=== PATIENT | male | born 1990 | race Two or more races ===

== ENCOUNTER 2020-05-11 09:38 | Outpatient (REF) | payer OTHER, SELFPAY ==
[2020-05-11 10:35] LABS: MANUAL DIFF FLAG NO
[2020-05-11 10:38] LABS: Basophils Percent Auto 0.4 % (0-2); Eosinophils Absolute Auto 0.1 X10*3/uL (0.0-0.4); Eosinophils Percent Auto 0.7 % (0-4); Hemoglobin 15.9 g/dl (14.0-18.0); Imm Gran Abs Auto 0.02 X10*3/uL (0.00-0.03); Imm Gran Pct Auto 0.3 % (0.0-0.4); Lymphocytes Absolute Auto 2.2 X10*3/uL (1.2-4.9); Lymphocytes Percent Auto 30.3 % (20-40); Mean Corpuscular HGB Conc 33.1 g/dl (31.0-36.0); Mean Corpuscular Hemoglobin 28.9 pg (27.0-33.0); Mean Corpuscular Volume 87.3 fL (80-98); Mean Platelet Volume 11.5 fL (9.4-12.4); Monocytes Absolute Auto 0.4 X10*3/uL (0.1-1.2); Monocytes Percent Auto 4.7 % (2-11); Neutrophils Absolute Auto 4.7 X10*3/uL (2.0-8.3); Neutrophils Percent Auto 63.6 % (45-73); Platelet Count 256 X10*3/uL (160-400); Red Cell Distribution Width 12.5 % (11.0-16.0); White Blood Count 7.4 X10*3/uL (4.8-10.8)
[2020-05-11 11:11] LABS: Anion Gap 11 (12-20); Blood Urea Nitrogen 17 mg/dL (9-16); Calcium 9.9 mg/dL (8.4-10.2); Carbon Dioxide 31 mmol/L (22-29); Chloride 101 mmol/L (96-108); Cholesterol 267 mg/dL; Estimated Glomerular Filt Rate > 60; Glucose Fasting 98 mg/dL (60-99); HDL Cholesterol 46 mg/dL; LDL Cholesterol Calculated 195 mg/dl; Potassium 4.7 mmol/l (3.3-5.1); Sodium 138 mmol/L (135-145); Triglycerides 130 mg/dL
[2020-05-11 11:17] LABS: Estimated Average Glucose 108 mg/dL; Hemoglobin A1c % 5.4 %
[2020-05-11 11:45] LABS: Reflex LDLD? No
== END 2020-05-11 09:39 | disposition home or self-care (01) ==
LOC: HO.LAB 09:38
PROVIDERS: PCP Internal Medicine; Visit Provider Nurse Practitioner Family
DX: M54.5 Low back pain (principal)
CPT/HCPCS: 36415; 80048; 80061; 83036; 85025

== ENCOUNTER 2020-09-07 15:37 | Outpatient (REF) | payer OTHER, SELFPAY ==
--- NOTE | ~2020-09-07 | XR_ITS ---
EXAMINATION: XR LUMBOSACRAL SPINE CLINICAL INFORMATION: Back pain. COMPARISON: None TECHNIQUE: Three views of the lumbosacral spine. FINDINGS: The vertebral bodies and posterior elements are normal. The disc spaces are preserved and the vertebral alignment is normal. The paraspinal soft tissues are normal. XR/XR lumbar spine 2-3V IMPRESSION: Unremarkable examination.
== END 2020-09-07 15:38 | disposition home or self-care (01) ==
LOC: HO.XRAY 15:37
PROVIDERS: Visit Provider Internal Medicine
DX: M54.9 Dorsalgia, unspecified (principal)
CPT/HCPCS: 72100

== ENCOUNTER 2020-09-08 06:58 | Outpatient (REF) | payer OTHER, SELFPAY ==
[2020-09-08 08:52] LABS: Alanine Aminotransferase 57 U/L (0-40); Albumin Level 4.3 g/dL (3.5-5.0); Alkaline Phosphatase 108 U/L (39-117); Anion Gap 15 (12-20); Aspartate Amino Transferase 30 U/L (5-37); Bilirubin Total 0.8 mg/dL (0.0-1.0); Blood Urea Nitrogen 14 mg/dL (9-16); Calcium 9.2 mg/dL (8.4-10.2); Carbon Dioxide 22 mmol/L (22-29); Chloride 107 mmol/L (96-108); Cholesterol 248 mg/dL; Estimated Glomerular Filt Rate > 60; Glucose Fasting 87 mg/dL (60-99); HDL Cholesterol 40 mg/dL; LDL Cholesterol Calculated 172 mg/dl; Potassium 4.7 mmol/L (3.3-5.1); Sodium 139 mmol/L (135-145); Total Protein 7.3 g/dL (6.5-8.0); Triglycerides 182 mg/dL
== END 2020-09-08 06:59 | disposition home or self-care (01) ==
LOC: HO.LAB 06:58
PROVIDERS: PCP Internal Medicine; Visit Provider Internal Medicine
DX: E78.00 Pure hypercholesterolemia, unspecified (principal); E78.5 Hyperlipidemia, unspecified
CPT/HCPCS: 36415; 80053; 80061

== ENCOUNTER 2020-10-16 06:11 | Outpatient (REF) | payer OTHER, SELFPAY ==
[2020-10-16 07:41] LABS: Alanine Aminotransferase 60 U/L (0-40); Albumin Level 4.3 g/dL (3.5-5.0); Alkaline Phosphatase 127 U/L (39-117); Anion Gap 12 (12-20); Aspartate Amino Transferase 26 U/L (5-37); Bilirubin Total 0.4 mg/dL (0.0-1.0); Blood Urea Nitrogen 18 mg/dL (9-16); Calcium 9.3 mg/dL (8.4-10.2); Carbon Dioxide 25 mmol/L (22-29); Chloride 105 mmol/L (96-108); Cholesterol 265 mg/dL; Estimated Glomerular Filt Rate > 60; Glucose Fasting 95 mg/dL (60-99); HDL Cholesterol 39 mg/dL; LDL Cholesterol Calculated 186 mg/dl; Potassium 4.2 mmol/L (3.3-5.1); Sodium 138 mmol/L (135-145); Triglycerides 203 mg/dL
== END 2020-10-16 06:12 | disposition home or self-care (01) ==
LOC: HO.LAB 06:11
PROVIDERS: PCP Internal Medicine; Visit Provider Internal Medicine
DX: E78.00 Pure hypercholesterolemia, unspecified (principal); E78.5 Hyperlipidemia, unspecified
CPT/HCPCS: 36415; 80053; 80061

== ENCOUNTER 2020-11-11 16:00 | Outpatient (RCR) | payer OTHER, SELFPAY ==
--- NOTE | 2020-10-13 16:38 | MHC.PT.EP ---
[facility] [place] [facility] [place] Office [place] Office [address] Daya Yang [address] [phone] F: [phone] F: [phone] F: [phone] F: [phone] Physical Therapy Plan of Care Date of Evaluation: Date of Surgery: N/A Diagnosis: M54.41: lumbago with sciatica, right side G89.29: other chronic pain Assessment: pt presents w/ impaired SI alignment which may be contributing to his radicular symptoms. Other working diagnosis includes lumbar radiculopathy. Will monitor and treat accordingly. pt presents to physical therapy with pain, decreased range of motion, decreased strength, impaired functional mobility, impaired postural awareness, and gait deviations. pt is a good candidate for skilled PT due to age, potential remediation of impairments, typical disease/condition progression and prognosis, comorbidities, and motivation. pt would benefit from tailored strengthening and stretching exercise program, functional training, gait training, postural re-training, neuromuscular re-education, modalities as needed for pain, equipment safety demonstration. Frequency and Duration: The patient will be seen 2x/wk for 4 wks Short Term Goals: pt will be I w/ HEP to promote self-management of condition. pt will improve lumbar flexion by 15% to facilitate ease in lower body dressing and donning shoes and socks. 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 pt will report <1/10 low back pain to lift 40# object x5 reps from floor to chest height w/ proper lifting mechanics to promote neutral spine to facilitate pain-free return to work. Treatment Plan: Modalities to reduce pain, spasms and effusion. Manual therapy to restore motion and function. Therapeutic exercise to improve strength and flexibility. Neuromuscular re-education for posture and balance. Therapeutic activities to return to functional activities of daily living. Electronically signed by: Fior Fuentes PT, DPT Please sign and return to therapist. Thank you for your referral.
--- NOTE | 2020-11-16 10:33 | MHC.PT.DC ---
[facility] [place] Office [place] Office [place] Office [address] Daya Yang [address] [phone] F: [phone] F: [phone] F: [phone] F: [phone] Physical Therapy Discharge Report Diagnosis: M54.41: lumbago with sciatica, right side G89.29: other chronic pain Date of Surgery: N/A Date of Evaluation: 10/13/20 Date of Discharge: 11/16/20 Treatments to Date: 4 Cancellations to Date: 0 No Shows to Date: 1 Discharge Status: Improved Function Independent with HEP Discharge Summary: The patient has not been having any back pain over the past couple of weeks. He is independent with his home exercise program at this time. He feels he is ready to manage his symptoms on his own with his home exercise program. He is discharged from this physical therapy plan of care. Electronically signed by: Fior Fuentes PT, DPT Please sign and return to therapist. Thank you for your referral.
== END 2020-11-16 10:33 | disposition home or self-care (01) ==
LOC: HO.PT 16:00
PROVIDERS: PCP Internal Medicine; Visit Provider Internal Medicine
DX: M54.41 Lumbago with sciatica, right side (principal); G89.29 Other chronic pain
CPT/HCPCS: 97110; 97140; 97162; 97530

== ENCOUNTER 2021-02-09 16:36 | Emergency (ER) | payer OTHER, SELFPAY | END 2021-02-09 19:48 | disposition left against medical advice (07) | PROVIDERS: Emergency Provider Emergency Medicine; PCP Internal Medicine | DX: L23.7 Allergic contact dermatitis due to plants, except food (principal) ==

== ENCOUNTER 2021-08-31 09:19 | Emergency (ER) | payer OTHER, SELFPAY ==
[2021-08-31 09:37] VITALS: BP 130/76; PULSE 85; RESP 18; TEMP 36.9; O2SAT 97; BMI 28.4
[2021-08-31 10:00] LABS: COVID-19 Test Negative (Negative)
[2021-08-31 10:05] LABS: IDNOW Serial# 08D9AD1C; Influenza A Negative (Negative); Influenza B2 Negative (Negative)
--- NOTE | 2021-08-31 10:26 | ED.URI ---
HPI - URI/Sore Throat General Chief Complaint: Upper Respiratory Symptoms Stated Complaint: sorethroat,headache Time Seen by Provider: 08/31/21 10:02 Source: patient Mode of arrival: ambulatory Limitations: language barrier History of Present Illness HPI Narrative: 30-year-old Polish-speaking male presents with 2 days of cough, sore throat, headache, and a sensation of burning in his sinuses. No fever, no nausea vomiting or diarrhea, he can swallow fine, he can open his mouth all the way. Headache started this morning as a mild headache with no photophobia, no visual changes, no neck pain. States he is bringing up phlegm with his cough. No prior history of pneumonia or asthma. He is vaccinated for COVID, his had bronchitis last week. States his voice is hoarse and his throat hurts more when he coughs. Related Data Previous Rx's Medication Instructions Recorded atorvastatin 10 mg tablet 10 mg PO BEDTIME 90 Days #90 tab 05/12/20 albuterol sulfate 90 mcg/actuation 2 puff INHALATION Q4-6H PRN #6.7 g 08/31/21 aerosol inhaler benzonatate 200 mg capsule 200 mg PO TID 5 Days #15 cap 08/31/21 ibuprofen 600 mg tablet 600 mg PO TID 7 Days #21 tab 08/31/21 Allergies Allergy/AdvReac Type Severity Reaction Status Date / Time No Known Allergies Allergy Verified 09/15/20 16:29 [No Known Allergies*] Review of Systems Constitutional: Constitutional: Reports body ache(s), Denies chills, Reports fatigue, Denies fever(s), Reports headache(s), Denies malaise and Denies weakness Eyes: Eyes: Denies blurry vision, Denies change in vision and Denies diplopia ENT: Denies vertigo, Denies dizziness, Denies otalgia, Reports headache(s), Denies mouth pain, Denies post nasal drip, Denies sinus pain, Denies sinus pressure, Reports sore throat and Denies throat swelling Cardiovascular: Cardiovascular: Denies chest pain, Denies syncope, Denies leg edema, Denies lightheadedness, Denies Loss of Consciousness, Denies palpitations and Denies dyspnea Respiratory: Respiratory: Denies chest congestion, Reports cough and Denies dyspnea Gastrointestinal: Gastrointestinal: Denies abdominal pain, Denies hematochezia, Denies constipation, Denies diarrhea and Denies vomiting Musculoskeletal: Musculoskeletal: Reports no additional musculoskeletal complaints and Reports myalgias Neurologic: Denies confusion, Denies vertigo, Denies dizziness, Denies syncope, Reports headache(s) and Denies weakness Psychiatric: Psychiatric: Denies anxiety, Denies confusion and Denies depression Endocrine: Endocrine: Reports fatigue and Denies palpitations Allergic/Immunologic: Allergic/Immunologic: Denies throat swelling PMFSH Past Medical History Medical History (Updated 08/31/21 @ 10:26 by CARLOS Norton) Back pain Pure hypercholesterolemia Surgical History No pertinent past surgical history Family History Family History Father Diabetes Mother No problems noted. Maternal Grandmother Diabetes Paternal Grandmother Diabetes Hypertension Brother No problems noted. Sister No problems noted. Son No problems noted. Daughter No problems noted. Social History Social History (Updated 09/15/20 @ 16:34 by YANET Wick) Alcohol intake: never Advance Directives: No Advance Directives Information Provided: No Physical Exam Vital Signs: Vital Signs: Last Vital Signs Temp 98.5 F 08/31/21 09:37 Pulse 85 08/31/21 09:37 Resp 18 08/31/21 09:37 BP 130/76 08/31/21 09:37 Pulse Ox 97 08/31/21 09:37 BMI result Body Mass Index 28.4 Const: General: no acute distress, alert and awake; No confusion Nutritional Appearance: well nourished Orientation/consciousness: patient oriented x3 and No confusion Limitations: no limitations HEENT: Head: Yes normal to inspection, Yes normocephalic and Yes atraumatic Ears: hearing grossly normal bilaterally, external ears normal, EAC's normal and unable to visualize TM (cerumen impaction) bilaterally General nose exam: Normal external nose present Face and sinus: Yes normal facial exam and Yes sinuses nontender Mouth: Normal oral and palatal mucosa present and moist mucous membranes Throat: Yes postnasal drainage Eyes: Conjunctivae: conjunctivae normal Pupils: Equal, round and reactive pupils present EOM: EOMs intact bilaterally Neck: Neck: Yes full ROM, Yes no lymphadenopathy and Yes supple Resp: Effort & Inspection: normal respiratory effort and able to speak in complete sentences Auscultation: clear to auscultation bilaterally, no crackles, no rales, no rhonchi and no wheezes Cardio: Rate: regular rate Rhythm: regular rhythm Heart sounds: S1 normal heart sound present and S2 normal heart sound present GI: Inspection: Yes normal to inspection Palpation (GI): Soft to palpation, nontender, no guarding and not rigid Percussion: Yes normal to percussion Auscultation: normal bowel sounds Skin: General skin exam: no rashes or lesions noted Neuro: General: patient oriented x3 and No confusion Cranial nerves: Yes Equal, round and reactive pupils present Extrem: General: Yes normal to inspection and Yes full ROM Psych: Appearance: grossly normal Affect: normal affect Attitude: cooperative Thought process: Normal thought process present Course Course Course Narrative: 30-year-old male presents with 2 days of upper respiratory symptoms of cough, sore throat, headache. Both COVID and flu are negative. Tessalon Perles and albuterol inhaler for symptomatic cough control, salt water gargles for sore throat, counseled Tylenol for headache. Gave return precautions. Patient verbalized agreement understanding of the plan. MDM - URI/Sore Throat Lab Data Labs: Lab Results 08/31/21 08/31/21 Range/Units 09:33 09:33 COVID-19 (NADER) Negative (Negative) COVID-19 Clin Com See Note Influenza Type A (NEETA) Negative (Negative) Influenza Type B (NEETA) Negative (Negative) Influenza A & B Note See Note Discharge Plan Discharge Clinical Impression: Upper respiratory infection Patient Disposition: Home, Self-Care Instructions: Upper Respiratory Infection (ED) Additional Instructions: Both your COVID in your influenza tests were negative today. Please stay out of work until . Please rest, drink plenty of fluids, and take ibuprofen, every 6 hours In addition, I have prescribed benzonatate, which is for your cough. Also on albuterol inhaler for cough. Please put 1 tsp of salt in a couple of warm water and gargle, do this several times a day for your sore throat. If you feel short of breath, you have chest pain, you have fevers or worsening cough, please return to the emergency room Tanto polanco COVID en bonny pruebas de influenza dieron negativo hoy. Por favor, qu?dese fuera del trabajo hasta el jueves. Por favor, descanse, ana muchos l?quidos y tome ibuprofeno, cada 6 horas. Adem?s, le he recetado benzonatato, que es para la tos. Tambi?n en inhalador de albuterol para la tos. Por favor, ponga 1 cucharadita de josé antonio en un par de agua tibia y mike g?rgaras, mike esto varias veces al d?a para polanco dolor de garganta. Si siente que le falta el aire, tiene dolor en el pecho, fiebre o empeoramiento de la tos, regrese a la jossy de emergencias. Prescriptions: New benzonatate 200 mg capsule 200 mg PO TID 5 Days Qty: 15 0RF albuterol sulfate 90 mcg/actuation HFA aerosol inhaler 2 puff inhalation Q4-6H PRN (Reason: shortness of breath or wheezing) Qty: 6.7 0RF ibuprofen 600 mg tablet 600 mg PO TID 7 Days Qty: 21 0RF No Action atorvastatin 10 mg tablet 10 mg PO BEDTIME 90 Days Qty: 90 0RF Stand Alone Forms: Work/School Release Interventions: ED Discharge Assessment Last Done: 08/31/21 10:33 Discharge Date/Time: 08/31/21 10:33
== END 2021-08-31 10:33 | disposition home or self-care (01) ==
PROVIDERS: Emergency Provider Emergency Medicine; PCP Internal Medicine
DX: J06.9 Acute upper respiratory infection, unspecified (principal); Z20.822 Contact with and (suspected) exposure to COVID-19; J02.9 Acute pharyngitis, unspecified
CPT/HCPCS: 87502; 87635; 99283

== ENCOUNTER 2021-11-10 06:19 | Emergency (ER) | payer OTHER, SELFPAY ==
[2021-11-10 06:28] VITALS: BP 121/63; PULSE 86; RESP 16; TEMP 36.8; O2SAT 98; BMI 25.4
--- NOTE | 2021-11-10 07:27 | ED_ITS ---
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 Mode of arrival: ambulatory Limitations: no limitations History of Present Illness Complaint: ear pain Location: left ear Duration: constant Severity: moderate Relieving factors: nothing Exacerbating factors: nothing Context: recent swimming Discharge from ear: no Associated symptoms ear: decreased hearing Treatment prior to arrival: none Related Data Previous Rx's Medication Instructions Recorded atorvastatin 10 mg tablet 10 mg PO BEDTIME 90 days #90 tabs 05/12/20 albuterol sulfate 90 mcg/actuation 2 puff inhalation Q4-6H PRN 08/31/21 aerosol inhaler shortness of breath or wheezing #6.7 grams benzonatate 200 mg capsule 200 mg PO TID 5 days #15 caps 08/31/21 ibuprofen 600 mg tablet 600 mg PO TID 7 days #21 tabs 08/31/21 ofloxacin 0.3 % ear drops 10 drp otic (ears) DAILY 7 days #5 11/10/21 mL Allergies Allergy/AdvReac Type Severity Reaction Status Date / Time No Known Allergies Allergy Verified 11/10/21 06:28 [No Known Allergies*] Review of Systems Review of Systems: Constitutional : no Fever, no Chills ENT/Mouth : no sore throat, no runny nose, pos ear pain Eyes: No Discharge Cardiovascular : No Chest Pain, No SOB Respiratory : No Cough, No Sputum Gastrointestinal : No Nausea, No Vomiting, No Diarrhea Genitourinary : No Dysuria, No Urinary Frequency Musculoskeletal : no Myalgia Skin : No rash Neuro : No Headache PMFSH Past Medical History Attestation statement: The following information was validated with the patient. Medical History Pure hypercholesterolemia Surgical History No pertinent past surgical history Family History Family History Father Diabetes Mother No problems noted. Maternal Grandmother Diabetes Paternal Grandmother Diabetes Hypertension Brother No problems noted. Sister No problems noted. Son No problems noted. Daughter No problems noted. Social History Social History (Updated 11/10/21 @ 07:29 by Oralia Cruz DO) Alcohol intake: never Patient Tobacco Use Status: Never used Tobacco Advance Directives: No Advance Directives Information Provided: No Physical Exam Vital Signs: Vital Signs: Last Vital Signs Temp 98.2 F 11/10/21 06:28 Pulse 86 11/10/21 06:28 Resp 16 11/10/21 06:28 BP 121/63 11/10/21 06:28 Pulse Ox 98 11/10/21 06:28 O2 Del Method 11/10/21 06:28 BMI result Body Mass Index 25.4 Appearance: Alert. Oriented X3. No acute distress. Eyes: Pupils equal, round and reactive to light. ENT: Pharynx normal. bilateral ears dark cerumen impaction Neck: Normal inspection. Neck supple. CVS: Normal heart rate and rhythm. Pulses normal. Respiratory: No respiratory distress. Breath sounds normal. Abdomen: Soft and nontender. Skin: Skin warm and dry. Normal skin color. Extremities: No lower extremity edema. Neuro: Oriented X 3. No motor deficit. No sensory deficit. Procedures Procedure Narrative Procedure Narrative: with elephant ear wash system - irrigated with warm water tolerated well removed dark small amount of cerumen, post check no perforation, red canal MDM - Ear MDM Narrative Medical decision making narrative: 31 yo male with hx of HLD here with bilateral cerumen impaction of both ears - at this time will irrigate the ears and then recheck. Discharge Plan Discharge Clinical Impression: Cerumen impaction Qualifiers: Laterality: left Qualified Code(s): H61.22 - Impacted cerumen, left ear Otitis externa Qualifiers: Otitis externa type: diffuse Chronicity: acute Laterality: left Qualified Code(s): H60.312 - Diffuse otitis externa, left ear Patient Disposition: Home, Self-Care Instructions: Otitis Externa (ED), Ear Infection (ED) Additional Instructions: return to ED for any worsening symptoms or concerns Prescriptions: New ofloxacin 0.3 % drops 10 drp otic (ears) DAILY 7 Days Qty: 5 0RF No Action benzonatate 200 mg capsule 200 mg PO TID 5 Days Qty: 15 0RF albuterol sulfate 90 mcg/actuation HFA aerosol inhaler 2 puff inhalation Q4-6H PRN (Reason: shortness of breath or wheezing) Qty: 6.7 0RF ibuprofen 600 mg tablet 600 mg PO TID 7 Days Qty: 21 0RF atorvastatin 10 mg tablet 10 mg PO BEDTIME 90 Days Qty: 90 0RF Stand Alone Forms: Work/School Release Print Language: Nigerien
--- NOTE | 2021-11-10 07:54 | PC.NURSE ---
Attempting to irrigate left ear however minimal wax seen. Provider to attempt with elephant ear washer
--- NOTE | 2021-11-10 08:01 | PC.NURSE ---
Dr Cruz to room for lef ear irrigation, minimal wax removed. Plan for d/c with ear drops
== END 2021-11-10 09:26 | disposition home or self-care (01) ==
PROVIDERS: Emergency Provider Emergency Medicine; PCP Internal Medicine
DX: H60.312 Diffuse otitis externa, left ear (principal); H61.22 Impacted cerumen, left ear; H92.02 Otalgia, left ear; R51.9 Headache, unspecified; Z79.899 Other long term (current) drug therapy
CPT/HCPCS: 69209; 99282; 99283

== ENCOUNTER 2021-12-07 08:40 | Outpatient (REF) | payer OTHER, SELFPAY ==
[2021-12-07 09:54] LABS: Hematocrit 44.9 % (42.0-52.0); Hemoglobin 14.4 g/dl (14.0-18.0); Mean Corpuscular HGB Conc 32.1 g/dl (31.0-36.0); Mean Corpuscular Hemoglobin 27.9 pg (27.0-33.0); Mean Platelet Volume 12.6 fL (9.4-12.4); Platelet Count 182 X10*3/uL (160-400); Red Blood Count 5.16 X10*6/uL (4.60-5.80); Red Cell Distribution Width 12.8 % (11.0-16.0); White Blood Count 5.2 X10*3/uL (4.8-10.8)
[2021-12-07 10:20] LABS: Alanine Aminotransferase 28 U/L (0-40); Albumin Level 4.4 g/dL (3.5-5.0); Alkaline Phosphatase 103 U/L (39-117); Anion Gap 11 (12-20); Aspartate Amino Transferase 17 U/L (5-37); Bilirubin Total 0.6 mg/dL (0.0-1.0); Blood Urea Nitrogen 12 mg/dL (9-16); Calcium 9.3 mg/dL (8.4-10.2); Carbon Dioxide 25 mmol/L (22-29); Chloride 106 mmol/L (96-108); Cholesterol 200 mg/dL; Estimated Glomerular Filt Rate > 60; Glucose Fasting 88 mg/dL (60-99); HDL Cholesterol 39 mg/dL; LDL Cholesterol Calculated 138 mg/dl; Potassium 4.4 mmol/L (3.3-5.1); Sodium 138 mmol/L (135-145); Total Protein 7.1 g/dL (6.5-8.0); Triglycerides 116 mg/dL
[2021-12-07 10:42] LABS: Vitamin D 25-OH Total 23.4 ng/mL (>30)
[2021-12-07 11:19] LABS: Vitamin B12 560 pg/mL (200-900)
== END 2021-12-07 08:41 | disposition home or self-care (01) ==
LOC: HO.LAB 08:40
PROVIDERS: PCP Internal Medicine; Visit Provider Nurse Practitioner Family
DX: Z00.00 Encounter for general adult medical examination without abnormal findings (principal); Z13.29 Encounter for screening for other suspected endocrine disorder; E78.00 Pure hypercholesterolemia, unspecified
CPT/HCPCS: 36415; 80053; 80061; 82306; 82607; 82746; 84443; 85027

== ENCOUNTER 2022-07-26 08:51 | Emergency (ER) | payer OTHER, SELFPAY ==
[2022-07-26 09:40] VITALS: BP 141/82; PULSE 92; RESP 18; TEMP 36.3; O2SAT 98; BMI 28.4
[2022-07-26 09:54] LABS: MANUAL DIFF FLAG NO
[2022-07-26 10:03] LABS: Basophils Percent Auto 0.2 % (0-2); Eosinophils Absolute Auto 0.1 X10*3/uL (0.0-0.4); Eosinophils Percent Auto 0.8 % (0-4); Hematocrit 48.6 % (42.0-52.0); Hemoglobin 15.9 g/dl (14.0-18.0); Imm Gran Abs Auto 0.03 X10*3/uL (0.00-0.03); Imm Gran Pct Auto 0.4 % (0.0-0.4); Lymphocytes Absolute Auto 1.4 X10*3/uL (1.2-4.9); Lymphocytes Percent Auto 16.3 % (20-40); Mean Corpuscular HGB Conc 32.7 g/dl (31.0-36.0); Mean Corpuscular Hemoglobin 28.4 pg (27.0-33.0); Mean Corpuscular Volume 86.9 fL (80.0-98.0); Mean Platelet Volume 10.7 fL (9.4-12.4); Monocytes Absolute Auto 0.6 X10*3/uL (0.1-1.2); Monocytes Percent Auto 7.5 % (2-11); Neutrophils Absolute Auto 6.2 x10*3/uL (2.0-8.3); Neutrophils Percent Auto 74.8 % (45-73); Platelet Count 223 X10*3/uL (160-400); Red Blood Count 5.59 X10*6/uL (4.60-5.80); Red Cell Distribution Width 13.1 % (11.0-16.0); White Blood Count 8.4 X10*3/uL (4.8-10.8)
[2022-07-26 10:13] LABS: Alanine Aminotransferase 57 U/L (0-40); Albumin Level 4.4 g/dL (3.5-5.0); Alkaline Phosphatase 105 U/L (39-117); Anion Gap 13 (12-20); Aspartate Amino Transferase 26 U/L (5-37); Bilirubin Total 1.1 mg/dL (0.0-1.0); Blood Urea Nitrogen 17 mg/dL (9-16); Calcium 8.9 mg/dL (8.4-10.2); Carbon Dioxide 29 mmol/L (22-29); Chloride 102 mmol/L (96-108); Creatinine Clr Calc Pharmacy 106.8; Estimated Glomerular Filt Rate > 60; Glucose Random 105 mg/dL (60-115); Potassium 4.2 mmol/L (3.3-5.1); Sodium 140 mmol/L (135-145); Total Protein 7.2 g/dL (6.5-8.0)
[2022-07-26 10:37] LABS: Influenza A PCR NEGATIVE (Negative); Influenza B PCR NEGATIVE (Negative); Resp Syncy Virus RNA Qual PCR NEGATIVE (Negative); SARS COV2 PCR INHOUSE NEGATIVE (Negative)
--- NOTE | 2022-07-26 13:30 | ED.NAVMDI ---
HPI - Nausea/Vomiting/Diarrhea General Chief complaint: Abdominal Pain Stated complaint: N/V/D Time Seen by Provider: 07/26/22 13:11 Source: patient and family Mode of arrival: ambulatory Limitations: no limitations History of Present Illness HPI Narrative: can tolerate PO today his boss made him come to ED MD elicited complaint: nausea, vomiting, diarrhea and abdominal pain Onset (ago): day(s) (yesterday) Description of vomiting: food contents and watery Description of diarrhea: watery Associated nausea: Yes Associated abdominal pain: Yes Location of pain: diffuse Radiation: diffuse Pain consistency: intermittent Severity: mild Quality: cramping Exacerbating factors: eating Relieving factors: none Context: sick contacts (son has it too) Related Data Previous Rx's Medication Instructions Recorded cholecalciferol (vitamin D3) 50 50 mcg PO DAILY 90 days #90 caps 05/19/22 mcg (2,000 unit) capsule guaifenesin 600 mg tablet, 600 mg PO Q12H PRN congestion 10 05/19/22 extended release 12 hr (Mucinex) days #20 tabs ondansetron 4 mg disintegrating 4 mg PO Q8H PRN nausea and 07/26/22 tablet vomiting #20 tabs Allergies Allergy/AdvReac Type Severity Reaction Status Date / Time No Known Allergies Allergy Verified 05/19/22 15:47 [No Known Allergies*] Review of Systems Review of Systems: Constitutional : No Weight loss, No Fever, No Chills ENT/Mouth : No sore throat, No Rhinorrhea Eyes: No Swelling, No Redness Cardiovascular : No Chest Pain, No SOB, NoEdema Respiratory : No Cough, No Sputum, No Wheezing Gastrointestinal : Positive Nausea, Positive Vomiting, positive Diarrhea, positive abdominal Pain, No Hematochezia, No Melena Genitourinary : No Dysuria, No Urinary Frequency, No Hematuria, No Urgency Musculoskeletal : No joint pain, No Myalgias, No Joint Swelling Skin : No Skin Lesions, No rash Neuro : No Weakness, No Numbness, No Dizziness, No Headache Psych : No Anxiety/Panic, No Depression Heme/Lymph: No Bruising, No Lymphadenopathy Endocrine : No Polyuria, No Polydipsia All other systems reviewed and are negative. Gastrointestinal: Gastrointestinal: Reports nausea PMFSH Past Medical History Attestation statement: The following information was validated with the patient. Medical History Back pain Surgical History No pertinent past surgical history Family History Family History Father Diabetes Mother No problems noted. Maternal Grandmother Diabetes Paternal Grandmother Diabetes Hypertension Brother No problems noted. Sister No problems noted. Son No problems noted. Daughter No problems noted. Social History Social History Housing: Apartment Alcohol intake: never Patient Tobacco Use Status: Never used Tobacco Smoked in Last 30 Days: No e-Cigarette/Vaping Use: Never Used Second Hand Smoke Exposure: No Use of substances other than those prescribed or required for medical reasons: No Any prior treatment program specific to substance use: No Advance Directives: No Advance Directives Information Provided: Yes service: No Current occupational status: employed Current occupation: [employer] Cognitive needs: No Hearing needs: No Vision needs: Yes ([facility] vision glasses) Physical Exam Vital Signs: Vital Signs: Last Vital Signs Temp 97.4 F 07/26/22 09:40 Pulse 92 07/26/22 09:40 Resp 18 07/26/22 09:40 BP 141/82 H 07/26/22 09:40 Pulse Ox 98 07/26/22 09:40 O2 Del Method 07/26/22 09:40 BMI result Body Mass Index 28.4 Appearance: Alert. Oriented X3. No acute distress. Eyes: Pupils equal, round and reactive to light. ENT: Pharynx normal. Neck: Normal inspection. Neck supple. CVS: Normal heart rate and rhythm. Pulses normal. Respiratory: No respiratory distress. Breath sounds normal. Abdomen: Soft and nontender. Skin: Skin warm and dry. Normal skin color. Normal skin turgor. Extremities: No lower extremity edema. No calf ttp Neuro: Oriented X 3. No motor deficit. No sensory deficit. Medications Administered Discontinued Medications Generic Name Dose Route Start Last Admin Trade Name Freq PRN Reason Stop Dose Admin Ondansetron HCl 4 mg 07/26/22 13:36 07/26/22 13:46 Ondansetron Odt 4 Mg Tab.Rapdis TRANSLINGU 07/26/22 13:37 4 mg ONCE ONE Administration Medical Decision Making Medical Decision Making [facility] Narrative: 31 yo male no PMH here with resolved n/v/d benign abdominal exam labs at baseline, already tolerating PO not toxic he notes he feels much better but he showed up at work and his boss referred him to the ED will send home with brat diet and precautions. ODT zofran PRN nausea Differential Diagnosis Differential Diagnoses: The differential diagnosis associated with the presentation includes viral syndrome, gastritis, covid Lab Data [facility] Lab Attestation statement: I reviewed the patient's lab results. 07/26/22 09:47 07/26/22 09:47 Labs: Lab Results 07/26/22 07/26/22 07/26/22 Range/Units 09:47 09:47 09:47 WBC 8.4 (4.8-10.8) X10*3/uL RBC 5.59 (4.60-5.80) X10*6/uL Hgb 15.9 (14.0-18.0) g/dl Hct 48.6 (42.0-52.0) % MCV 86.9 (80.0-98.0) fL MCH 28.4 (27.0-33.0) pg MCHC 32.7 (31.0-36.0) g/dl RDW 13.1 (11.0-16.0) % Plt Count 223 (160-400) X10*3/uL MPV 10.7 (9.4-12.4) fL Immature Gran % (Auto) 0.4 (0.0-0.4) % Neut % (Auto) 74.8 H (45-73) % Lymph % (Auto) 16.3 L (20-40) % Kay % (Auto) 7.5 (2-11) % Eos % (Auto) 0.8 (0-4) % Baso % (Auto) 0.2 (0-2) % Lymph # (Auto) 1.4 (1.2-4.9) X10*3/uL Kay # (Auto) 0.6 (0.1-1.2) X10*3/uL Eos # (Auto) 0.1 (0.0-0.4) X10*3/uL Baso # (Auto) 0.0 (0.0-0.2) X10*3/uL Abs Immat Gran (auto) 0.03 (0.00-0.03) X10*3/uL Absolute Neuts (auto) 6.2 (2.0-8.3) x10*3/uL Absolute Nucleated RBC 0.000 (0.0-0.012) X10*3/uL Nucleated RBC % (auto) 0.0 (0.0-0.2) /100WBC Sodium 140 (135-145) mmol/L Potassium 4.2 (3.3-5.1) mmol/L Chloride 102 (96-108) mmol/L Carbon Dioxide 29 (22-29) mmol/L Anion Gap 13 (12-20) BUN 17 H (9-16) mg/dL Creatinine 1.14 (0.5-1.4) mg/dL Estim Creat Clear Calc 106.8 Estimated GFR > 60 Random Glucose 105 (60-115) mg/dL Calcium 8.9 (8.4-10.2) mg/dL Total Bilirubin 1.1 H (0.0-1.0) mg/dL AST 26 (5-37) U/L ALT 57 H (0-40) U/L Alkaline Phosphatase 105 (39-117) U/L Total Protein 7.2 (6.5-8.0) g/dL Albumin 4.4 (3.5-5.0) g/dL Influenza Type A (PCR) NEGATIVE (Negative) Influenza Type B (PCR) NEGATIVE (Negative) RSV RNA Qual (PCR) NEGATIVE (Negative) SARS-CoV-2 RNA (RT-PCR) NEGATIVE (Negative) Independent Historian Clinical information obtained from an independent historian. History obtained from or confirmed by: Spouse Prescription Management I considered prescription management with: Other Discharge Plan Discharge Clinical Impression: Vomiting Qualifiers: Vomiting type: unspecified Nausea presence: with nausea Qualified Code(s): R11.2 - Nausea with vomiting, unspecified Diarrhea Qualifiers: Diarrhea type: infectious Qualified Code(s): A09 - Infectious gastroenteritis and colitis, unspecified Patient Disposition: Home, Self-Care Instructions: Acute Nausea and Vomiting (ED), Acute Diarrhea (ED) Additional Instructions: return to ED for any worsening symptoms or concerns drink plenty of fluids - water and gatorade or pedialyte. avoid dairy but yogurt is okay for the next 5 days return for worsening pain, fevers, inability to eat or drink, bloody stools regresar al servicio de urgencias por cualquier empeoramiento de los s?ntomas o inquietudes ana muchos l?quidos - agua y gatorade o pedialyte. evite los productos l?cteos, skip el yogur est? nahun crystal los pr?ximos 5 d?as regresar por empeoramiento del dolor, fiebre, incapacidad para comer o beber, heces con harsh Prescriptions: New ondansetron 4 mg tablet,disintegrating 4 mg PO Q8H PRN (Reason: nausea and vomiting) Qty: 20 0RF No Action cholecalciferol (vitamin D3) 50 mcg (2,000 unit) capsule 50 mcg PO DAILY 90 Days Qty: 90 1RF guaifenesin [Mucinex] 600 mg tablet extended release 12hr 600 mg PO Q12H PRN (Reason: congestion) 10 Days Qty: 20 0RF Stand Alone Forms: Work/School Release Interventions: ED Discharge Assessment Last Done: 07/26/22 13:49 Discharge Date/Time: 07/26/22 13:49 Print Language: Vietnamese
[2022-07-26] MEDS: Ondansetron ODT 4 MG TAB.RAPDIS TRANSLINGU (13:46)
== END 2022-07-26 13:49 | disposition home or self-care (01) ==
PROVIDERS: Emergency Provider Emergency Medicine; PCP Internal Medicine
DX: A09 Infectious gastroenteritis and colitis, unspecified (principal); R11.2 Nausea with vomiting, unspecified; Z20.822 Contact with and (suspected) exposure to COVID-19; Z20.828 Contact with and (suspected) exposure to other viral communicable diseases; Z79.899 Other long term (current) drug therapy
CPT/HCPCS: 0241U; 80053; 85025; 99283; 99284

== ENCOUNTER 2022-07-28 06:48 | Emergency (ER) | payer OTHER, SELFPAY ==
[2022-07-28 07:01] VITALS: BP 134/70; PULSE 80; RESP 16; TEMP 36.6; O2SAT 99; BMI 28.4
[2022-07-28 07:11] VITALS: BP 132/80; PULSE 74; RESP 19; TEMP 36.6; O2SAT 99
--- NOTE | 2022-07-28 07:41 | ED_ITS ---
HPI - Nausea/Vomiting/Diarrhea General Chief complaint: Nausea/Vomiting/Diarrhea Stated complaint: n/d, migraine Time Seen by Provider: 07/28/22 07:13 History of Present Illness HPI Narrative: Patient is a 31-year-old presents today with having nausea vomiting diarrhea. Patient was seen 2 days prior. Was given Zofran labs were checked COVID test was negative continued to have diarrhea that is yellow in color. Patient have 1 episode of diarrhea yesterday. No fever no chills. No diaphoresis. Minimal cramping in the abdomen. Related Data Previous Rx's Medication Instructions Recorded cholecalciferol (vitamin D3) 50 50 mcg PO DAILY 90 days #90 caps 05/19/22 mcg (2,000 unit) capsule guaifenesin 600 mg tablet, 600 mg PO Q12H PRN congestion 10 05/19/22 extended release 12 hr (Mucinex) days #20 tabs ondansetron 4 mg disintegrating 4 mg PO Q8H PRN nausea and 07/26/22 tablet vomiting #20 tabs Allergies Allergy/AdvReac Type Severity Reaction Status Date / Time No Known Allergies Allergy Verified 05/19/22 15:47 [No Known Allergies*] Review of Systems Review of Systems: Positive nausea vomiting diarrhea Yes all other systems are reviewed and are negative PMFSH Past Medical History Attestation statement: The following information was validated with the patient. Medical History Back pain Surgical History No pertinent past surgical history Family History Family History Father Diabetes Mother No problems noted. Maternal Grandmother Diabetes Paternal Grandmother Diabetes Hypertension Brother No problems noted. Sister No problems noted. Son No problems noted. Daughter No problems noted. Social History Social History Housing: Apartment Alcohol intake: never Patient Tobacco Use Status: Never used Tobacco Smoked in Last 30 Days: No e-Cigarette/Vaping Use: Never Used Second Hand Smoke Exposure: No Use of substances other than those prescribed or required for medical reasons: No Advance Directives: No Advance Directives Information Provided: Yes service: No Current occupational status: employed Current occupation: [employer] Cognitive needs: No Hearing needs: No Vision needs: Yes (nigh vision glasses) Physical Exam Vital Signs: Vital Signs: Last Vital Signs Temp 97.8 F 07/28/22 07:11 Pulse 74 07/28/22 07:11 Resp 19 07/28/22 07:11 BP 132/80 07/28/22 07:11 Pulse Ox 99 07/28/22 07:11 O2 Del Method 07/28/22 07:11 BMI result Body Mass Index 28.4 Appearance: Alert. Oriented X3. No acute distress. Eyes: Pupils equal, round and reactive to light. ENT: Pharynx normal. Neck: Normal inspection. Neck supple. No lymph nodes noted. No crepitus CVS: Normal heart rate and rhythm. Pulses normal. Normal S1 and S2 Respiratory: No respiratory distress. Breath sounds normal. No Wheezing. No rales Abdomen: Soft and nontender. No rigidity. No distention. good BS x4 Skin: Skin warm and dry. Normal skin color. Normal skin turgor. Extremities: No lower extremity edema. Neurovascular intact to all extremities. No Lacerations. No Rash Neuro: Oriented X 3. No motor deficit. No sensory deficit. Moving all extermities. No slurred speech Medications Administered Discontinued Medications Generic Name Dose Route Start Last Admin Trade Name Freq PRN Reason Stop Dose Admin Sodium Chloride 1,000 mls @ 999 mls/hr 07/28/22 07:45 07/28/22 08:53 Ns IV 07/28/22 08:45 Infused .Q1H1M FIDEL Infusion Ketorolac Tromethamine 30 mg 07/28/22 07:40 07/28/22 07:59 Ketorolac Tromethamine 30 Mg/Ml Vial IVPUSH 07/28/22 07:41 30 mg ONCE ONE Administration Medical Decision Making Medical Decision Making [facility] Narrative: Positive diarrhea. Generalized malaise. Given IV fluids symptoms improved. Repeat abdominal exam is soft nontender. Will discharge patient. Advance patient's risk of appendicitis is low. Differential Diagnosis Gastroenteritis, abdominal pain, appendicitis Lab Data [facility] Lab Attestation statement: I reviewed the patient's lab results. 07/28/22 07:55 07/28/22 07:55 Labs: Lab Results 07/28/22 07/28/22 Range/Units 07:55 07:55 WBC 6.7 (4.8-10.8) X10*3/uL RBC 5.37 (4.60-5.80) X10*6/uL Hgb 15.2 (14.0-18.0) g/dl Hct 46.4 (42.0-52.0) % MCV 86.4 (80.0-98.0) fL MCH 28.3 (27.0-33.0) pg MCHC 32.8 (31.0-36.0) g/dl RDW 12.8 (11.0-16.0) % Plt Count 223 (160-400) X10*3/uL MPV 10.7 (9.4-12.4) fL Immature Gran % (Auto) 0.1 (0.0-0.4) % Neut % (Auto) 67.7 (45-73) % Lymph % (Auto) 25.7 (20-40) % [place] % (Auto) 5.5 (2-11) % Eos % (Auto) 0.7 (0-4) % Baso % (Auto) 0.3 (0-2) % Lymph # (Auto) 1.7 (1.2-4.9) X10*3/uL [place] # (Auto) 0.4 (0.1-1.2) X10*3/uL Eos # (Auto) 0.1 (0.0-0.4) X10*3/uL Baso # (Auto) 0.0 (0.0-0.2) X10*3/uL Abs Immat Gran (auto) 0.01 (0.00-0.03) X10*3/uL Absolute Neuts (auto) 4.5 (2.0-8.3) x10*3/uL Absolute Nucleated RBC 0.000 (0.0-0.012) X10*3/uL Nucleated RBC % (auto) 0.0 (0.0-0.2) /100WBC Sodium 139 (135-145) mmol/L Potassium 4.7 (3.3-5.1) mmol/L Chloride 106 (96-108) mmol/L Carbon Dioxide 27 (22-29) mmol/L Anion Gap 11 L (12-20) BUN 15 (9-16) mg/dL Creatinine 1.06 (0.5-1.4) mg/dL Estim Creat Clear Calc 114.9 Estimated GFR > 60 Random Glucose 102 (60-115) mg/dL Calcium 9.1 (8.4-10.2) mg/dL Total Bilirubin 0.6 (0.0-1.0) mg/dL Direct Bilirubin < 0.2 (0.0-0.5) mg/dL AST 26 (5-37) U/L ALT 58 H (0-40) U/L Alkaline Phosphatase 88 (39-117) U/L Total Protein 6.9 (6.5-8.0) g/dL Albumin 4.3 (3.5-5.0) g/dL Lipase 24 (8-78) U/L External Record Review Previous record examined Discharge Plan Discharge Clinical Impression: Diarrhea Patient Disposition: Home, Self-Care Instructions: Acute Diarrhea (ED) Prescriptions: No Action ondansetron 4 mg tablet,disintegrating 4 mg PO Q8H PRN (Reason: nausea and vomiting) Qty: 20 0RF cholecalciferol (vitamin D3) 50 mcg (2,000 unit) capsule 50 mcg PO DAILY 90 Days Qty: 90 1RF guaifenesin [Mucinex] 600 mg tablet extended release 12hr 600 mg PO Q12H PRN (Reason: congestion) 10 Days Qty: 20 0RF Referrals: Lia Lennon MD [Primary Care Provider] -
[2022-07-28] MEDS: Ketorolac Tromethamine 30 MG/ML VIAL IVPUSH (07:59)
[2022-07-28] MEDS: 0.9 % Sodium Chloride 1,000 ML 999 ML IV (07:59)
[2022-07-28 08:00] LABS: MANUAL DIFF FLAG NO
[2022-07-28 08:11] LABS: Basophils Percent Auto 0.3 % (0-2); Eosinophils Absolute Auto 0.1 X10*3/uL (0.0-0.4); Eosinophils Percent Auto 0.7 % (0-4); Hematocrit 46.4 % (42.0-52.0); Hemoglobin 15.2 g/dl (14.0-18.0); Imm Gran Abs Auto 0.01 X10*3/uL (0.00-0.03); Imm Gran Pct Auto 0.1 % (0.0-0.4); Lymphocytes Absolute Auto 1.7 X10*3/uL (1.2-4.9); Lymphocytes Percent Auto 25.7 % (20-40); Mean Corpuscular HGB Conc 32.8 g/dl (31.0-36.0); Mean Corpuscular Hemoglobin 28.3 pg (27.0-33.0); Mean Corpuscular Volume 86.4 fL (80.0-98.0); Mean Platelet Volume 10.7 fL (9.4-12.4); Monocytes Absolute Auto 0.4 X10*3/uL (0.1-1.2); Monocytes Percent Auto 5.5 % (2-11); Neutrophils Absolute Auto 4.5 x10*3/uL (2.0-8.3); Neutrophils Percent Auto 67.7 % (45-73); Platelet Count 223 X10*3/uL (160-400); Red Blood Count 5.37 X10*6/uL (4.60-5.80); Red Cell Distribution Width 12.8 % (11.0-16.0); White Blood Count 6.7 X10*3/uL (4.8-10.8)
[2022-07-28 08:23] LABS: Alanine Aminotransferase 58 U/L (0-40); Albumin Level 4.3 g/dL (3.5-5.0); Alkaline Phosphatase 88 U/L (39-117); Anion Gap 11 (12-20); Aspartate Amino Transferase 26 U/L (5-37); Bilirubin Direct < 0.2 mg/dL (0.0-0.5); Bilirubin Total 0.6 mg/dL (0.0-1.0); Blood Urea Nitrogen 15 mg/dL (9-16); Calcium 9.1 mg/dL (8.4-10.2); Carbon Dioxide 27 mmol/L (22-29); Chloride 106 mmol/L (96-108); Creatinine Clr Calc Pharmacy 114.9; Estimated Glomerular Filt Rate > 60; Glucose Random 102 mg/dL (60-115); Lipase 24 U/L (8-78); Potassium 4.7 mmol/L (3.3-5.1); Sodium 139 mmol/L (135-145); Total Protein 6.9 g/dL (6.5-8.0)
== END 2022-07-28 10:07 | disposition home or self-care (01) ==
PROVIDERS: Emergency Provider Emergency Medicine Emergency Medical Services; PCP Internal Medicine
DX: R11.2 Nausea with vomiting, unspecified (principal); R19.7 Diarrhea, unspecified; Z79.899 Other long term (current) drug therapy
CPT/HCPCS: 36415; 80048; 80076; 83690; 85025; 96361; 96374; 99284; J1885

== ENCOUNTER 2023-01-04 16:48 | Outpatient (AMB) | payer OTHER, SELFPAY ==
[2023-01-04 16:55] VITALS: BP 118/82; PULSE 88; O2SAT 97; BMI 27.3
--- NOTE | 2023-01-04 16:55 | MHC.PC.OV ---
Vital Signs 01/04/23 16:55 Height 5 ft 10 in Weight 190 lb 6 oz BMI 27.3 BP 118/82 Blood Pressure Location Lt brachial Position Sitting Pulse 88 Pulse Source Pulse Oximeter Pulse Oximetry (%) 97 Oxygen Delivery Method Room Air Intake Visit Reasons: Annual Exam Intake Note: Patient is here today for a physical. Vegetable [employer] Farm[employer] Required: No Accompanied by: Self / Same As Patient Allergies No Known Allergies [No Known Allergies*] Allergy (Verified 01/04/23 17:07) Medication List - Last Reconciled 01/04/23 by Lia Mcqueen MD cholecalciferol (vitamin D3) 50 mcg PO DAILY 90 days Tobacco use date assessed: 01/04/23 Dental Screening Dental Screen Date: 01/04/23 Did you have a dental visit in the last 12 months?: Yes Did you have a dental problem in the last 6 months where you did not have access to dental care?: No Was dental information given to patient?: Patient has dentist HPI HPI Comments History of Present Illness Details This is a 32-year-old male that comes for his physical exam accompanied by . No chest pain or shortness of breath. Family history of diabetes mellitus. Complains of occasional lumbar pain with no fever, bowel or bladder incontinence. [facility] Medical History Back pain Surgical History No pertinent past surgical history Family History Father Diabetes Mother No problems noted. Maternal Grandmother Diabetes Paternal Grandmother Diabetes Hypertension Brother No problems noted. Sister No problems noted. Son No problems noted. Daughter No problems noted. Social History Housing: Apartment Alcohol intake: never Patient Tobacco Use Status: Never used Tobacco e-Cigarette/Vaping Use: Never Used Second Hand Smoke Exposure: No service: No Current occupational status: employed Current occupation: [employer] Cognitive needs: No Hearing needs: No Vision needs: Yes (nigh vision glasses) Questionnaire PHQ-9 Over the last 2 weeks, how often have you been bothered by any of the following problems? 1. Little interest or pleasure in doing things: not at all 2. Feeling down, depressed, or hopeless: not at all 3. Trouble falling or staying asleep, or sleeping too much: not at all 4. Feeling tired or having little energy: not at all 5. Poor appetite or overeating: not at all 6. Feeling bad about yourself - or that you are a failure or have let yourself or your family down: not at all 7. Trouble concentrating on things, such as reading the newspaper or watching television: not at all 8. Moving or speaking so slowly that other people could have noticed. Or the opposite - being so fidgety or restless that you have been moving around a lot more than usual: not at all 9. Thoughts that you would be better off or of hurting yourself in some way: not at all Total score: 0 Depression Screening Interpretation: Negative 13881 - PHQ-9 Billing: Yes Source: Developed by Drs. Hua Cross, Isamar Carmichael, Javan Farrell and colleagues, with an educational mirza from [employer]. Thrive Questionnaire Date Thrive assessed: 01/04/23 I am a: Patient What is your living situation today?: I have a steady place to live Within the past 12 months, did the food you bought not last and you didn't have the money to get more?: Never true Within the past 12 months, did you worry whether your food would run out before you got money to buy more?: Never true Do you have trouble paying for medicines?: No Do you have trouble getting transportation to medical appointments?: No Do you have trouble paying your heating and electricity bill?: No Do you have trouble taking care of your child, family member or friend?: No Do you have trouble with day-to-day activities such as bathing, preparing meals, shopping, managing finances, etc.?: No Are you currently unemployed and looking for a job?: No Are you interested in more education?: No Please select the resources that you would like help with: None Currently or been in a relationship where the following occur: no concerns reported AUDIT C Alcohol Use Questionnaire (AUDIT-C) 1. How often do you have a drink containing alcohol?: Monthly or less 2. How many drinks containing alcohol do you have on a typical day when you are drinking?: 1 or 2 3. How often do you have six or more drinks on one occasion?: Never Total Score: 1 Score Reviewed/Action Taken: No RONAL-7 AMB Questionnaire RONAL-7 Date RONAL - 7 assessed: 01/04/23 Feeling nervous, anxious, or on edge: 0 = Not at all Not being able to stop or control worryin = Not at all Worrying too much about different things: 0 = Not at all Trouble relaxin = Not at all Being so restless that it is hard to sit still: 0 = Not at all Becoming easily annoyed or irritable: 0 = Not at all Feeling afraid as if something awful might happen: 0 = Not at all Total RONAL-7 score (0-4 normal; 5-9 mild; 10-14 moderate; 15-21 severe): 0 Source: Developed by Drs. Hua Cross, Isamar Carmichael, Javan Farrell and colleagues, with an educational mirza from [employer]. RONAL-7 Assessment Billing RONAL-7 Assessment Tool: RONAL-7 Assessment 66364 Review of Systems Const All systems reviewed & are unremarkable except as noted in HPI and below Eyes Reports no additional complaints, Denies change in vision and Denies other visual disturbances Card Denies chest pain at rest, Denies chest pain with activity, Denies edema, Denies irregular heart rhythm, Denies claudication, Denies dyspnea, Denies dyspnea on exertion, Denies orthopnea, Denies paroxysmal nocturnal dyspnea and Denies slow heart rate Resp Denies cough, Denies dyspnea and Denies dyspnea on exertion GI Denies abdominal pain, Denies change in bowel habits, Denies excessive flatus, Denies nausea and Denies vomiting Denies urinary hesitancy, Denies urinary incontinence and Denies urinary urgency Musc Denies abnormal gait, Denies atrophy, Denies deformity and Denies limited range of motion Skin/Breast Denies bleeding lesions, Denies changing lesions and Denies rash Neuro Denies abnormal gait, Denies confusion and Denies lack of coordination Psych Denies confusion Physical exam (Primary Care) Vital Signs: Last Vital Signs Pulse 88 01/04/23 16:55 BP 118/82 01/04/23 16:55 Pulse Ox 97 01/04/23 16:55 Oxygen Delivery Method Room Air 01/04/23 16:55 BMI result Body Mass Index 27.3 Tobacco/Smoking Status: Tobacco use Status Tobacco use date assessed 01/04/23 01/04/23 16:58 Patient Tobacco Use Status Never used Tobacco 01/04/23 16:58 e-Cigarette/Vaping Use Never Used 01/04/23 16:58 PHQ-9: PHQ-9 Score PHQ-9: Total score 0 01/04/23 16:58 Depression Screening Interpretation: Negative Thrive Assessment: Date of Thrive Assessment Date Thrive assessed 01/04/23 01/04/23 17:01 Currently or been in a relationship where the following occur: no concerns reported Const General: No confusion Orientation/consciousness: patient oriented x3 and No confusion HENMT Head: Yes normal to inspection, Yes normocephalic and Yes atraumatic Ears: external ears normal Eyes General: appearance normal, both eyes and all related structures Eyelids: Yes eyelids normal Conjunctivae: conjunctivae normal Neck Neck: Yes normal visual inspection and Yes supple Resp Effort & Inspection: normal respiratory effort Auscultation: clear to auscultation bilaterally Cardio Jugular venous distension: no JVD Rate: regular rate Rhythm: regular rhythm Heart sounds: S1 normal heart sound present and S2 normal heart sound present GI Inspection: Yes normal to inspection Palpation (GI): Soft to palpation and nontender Auscultation: normal bowel sounds Skin General skin exam: no rashes or lesions noted Neuro General: patient oriented x3, no focal motor deficits and No confusion Extrem General: Yes full ROM Psych Appearance: grossly normal Assessment and Plan Assessment & Plan (1) Adult general medical exam: Code(s): Z00.00 - Encounter for general adult medical examination without abnormal findings Plan: Repeat in a year Orders: Orders Lipid Panel Today E78.5 - Hyperlipidemia, unspecified Vitamin D 25-OH Total Today E55.9 - Vitamin D deficiency, unspecified Medications: New ibuprofen 800 mg PO Q8H 30 days PRN 90 tabs 0RF pain Refilled cholecalciferol (vitamin D3) 50 mcg PO DAILY 90 days 90 caps 1RF Coding Level of Care Code Est Pt Prev Care 18-39y(65076) Diagnoses Adult general medical exam Z00.00 Additional Codes RONAL-7 Assessment Billing - RONAL-7 Assessment Tool: RONAL-7 Assessment 42047 ([id number]) Time Spent (min) 33
== END 2023-01-04 17:17 | disposition home or self-care (01) ==
PROVIDERS: PCP Internal Medicine; Visit Provider Internal Medicine
DX: Z00.00 Encounter for general adult medical examination without abnormal findings (principal)
CPT/HCPCS: 99395

== ENCOUNTER 2023-01-25 09:19 | Outpatient (REF) | payer OTHER, SELFPAY ==
[2023-01-25 11:16] LABS: Alanine Aminotransferase 42 U/L (0-40); Albumin Level 4.2 g/dL (3.5-5.0); Alkaline Phosphatase 112 U/L (39-117); Anion Gap 10 (12-20); Aspartate Amino Transferase 21 U/L (5-37); Bilirubin Total 0.5 mg/dL (0.0-1.0); Blood Urea Nitrogen 11 mg/dL (9-16); Calcium 9.6 mg/dL (8.4-10.2); Carbon Dioxide 27 mmol/L (22-29); Chloride 107 mmol/L (96-108); Cholesterol 243 mg/dL (<200); Estimated Glomerular Filt Rate > 60; Glucose Fasting 95 mg/dL (60-99); HDL Cholesterol 44 mg/dL (>40); LDL Cholesterol Calculated 176 mg/dL (<100); Potassium 4.4 mmol/L (3.3-5.1); Sodium 140 mmol/L (135-145); Triglycerides 116 mg/dL (<150)
[2023-01-25 11:32] LABS: Vitamin D 25-OH Total 25.1 ng/mL (>30)
== END 2023-01-25 09:20 | disposition home or self-care (01) ==
LOC: HO.LAB 09:19
PROVIDERS: PCP Internal Medicine; Visit Provider Internal Medicine
DX: Z00.00 Encounter for general adult medical examination without abnormal findings (principal); E55.9 Vitamin D deficiency, unspecified; E78.5 Hyperlipidemia, unspecified
CPT/HCPCS: 36415; 80053; 80061; 82306

== ENCOUNTER 2023-06-12 07:58 | Emergency (ER) | payer OTHER, SELFPAY ==
[2023-06-12 08:02] VITALS: BP 137/80; PULSE 108; RESP 17; TEMP 36.9; O2SAT 98; BMI 28.6
[2023-06-12 08:32] LABS: COVID-19 Test Positive (Negative); IDNOW Serial# 152EDE1D
[2023-06-12 08:33] LABS: IDNOW Serial# 08D9AD1C; Strep A Nucleic Acid Negative (Negative)
--- NOTE | 2023-06-12 08:44 | ED_ITS ---
HPI - URI/Sore Throat General Chief Complaint: Upper Respiratory Symptoms Stated Complaint: Sinus pain/Sore throat Time Seen by Provider: 06/12/23 08:13 Source: patient, RN notes reviewed and old records reviewed Mode of arrival: ambulatory History of Present Illness [facility] Narrative: 32-year-old male with past medical history HLD, presenting to the ED complaining of dry cough, sore throat, and sinus pressure/congestion x few days. Denies reported fever, ear pain, difficulty or inability to swallow, SOB/CP, travel, sick contacts MD elicited complaint: cough, sore throat, rhinorrhea and nasal congestion Related Data Previous Rx's Medication Instructions Recorded cholecalciferol (vitamin D3) 50 50 mcg PO DAILY 90 days #90 caps 01/04/23 mcg (2,000 unit) capsule ibuprofen 800 mg tablet 800 mg PO Q8H PRN pain 30 days #90 01/04/23 tabs Allergies Allergy/AdvReac Type Severity Reaction Status Date / Time No Known Allergies Allergy Verified 06/12/23 08:02 [No Known Allergies*] Review of Systems Review of Systems: Constitutional: No Fever, No Chills ENT/Mouth: No Ear Pain, +Nasal Congestion, No Sinus Pain, No Hoarseness, +ore throat, +Rhinorrhea, No Swallowing Difficulty Cardiovascular: No Chest Pain, No SOB Respiratory: + Cough, + Sputum, No Wheezing Gastrointestinal: No Nausea, No Vomiting, No Diarrhea, No Constipation, No Abdominal pain Musculoskeletal: No joint pain, No Myalgias, No Joint Swelling Skin: No Skin Lesions, No rash Neuro: No Weakness Yes all other systems are reviewed and are negative Constitutional: Constitutional: Reports as per [facility] Past Medical History Attestation statement: The following information was validated with the patient. Source: old records reviewed Onset Date is defined in the Problem List Problems that require an onset date and time if occurred within 24 hrs of arrival to the ED Aortic Dissection and Rupture; Neurologic impairment; Cardiopulmonary Arrest; Endotracheal Intubation; Insertion or Replacement of Mechanical Circulatory Assist Device Medical History Back pain Surgical History No pertinent past surgical history Family History Family History Father Diabetes Mother No problems noted. Maternal Grandmother Diabetes Paternal Grandmother Diabetes Hypertension Brother No problems noted. Sister No problems noted. Son No problems noted. Daughter No problems noted. Social History Social History Housing: Apartment Alcohol intake: never Patient Tobacco Use Status: Never used Tobacco e-Cigarette/Vaping Use: Never Used Second Hand Smoke Exposure: No Advance Directives: No service: No Current occupational status: employed Current occupation: [employer] Cognitive needs: No Hearing needs: No Vision needs: Yes (nigh vision glasses) Physical Exam Vital Signs: Vital Signs: Last Vital Signs Temp 98.4 F 06/12/23 08:02 Pulse 108 H 06/12/23 08:02 Resp 17 06/12/23 08:02 BP 137/80 06/12/23 08:02 Pulse Ox 98 06/12/23 08:02 O2 Del Method Room Air 06/12/23 08:02 BMI result Body Mass Index 28.6 Const: General: cooperative, healthy appearing, no acute distress, alert and awake Orientation/consciousness: patient oriented x3 Limitations: no limitations HEENT: Head: Yes normal to inspection and Yes atraumatic Ears: hearing grossly normal bilaterally, external ears normal and unable to visualize TM bilaterally (Secondary to cerumen impaction) General nose exam: Normal external nose present Face and sinus: Yes normal facial exam Throat: Yes tonsils normal, Yes uvula midline, Yes posterior oropharynx abnormal (Erythematous. No exudates), No uvula laterally displaced and No uvular edema Eyes: General: appearance normal, both eyes and all related structures EOM: EOMs intact bilaterally Neck: Neck: Yes normal visual inspection and Yes no meningeal signs Resp: Effort & Inspection: normal respiratory effort, no respiratory distress and no stridor Auscultation: clear to auscultation bilaterally, no crackles and no wheezes Cardio: Rate: regular rate Heart sounds: S1 normal heart sound present and S2 normal heart sound present Skin: Rashes: no rashes Wounds: no wounds Neuro: General: patient oriented x3, tone normal and no meningeal signs Cranial nerves: Yes CN's II-XII intact bilaterally Gait exam (Neuro): Normal gait present Extrem: General: Yes normal to inspection Course Course Course Narrative: -COVID-19 positive. -rapid strep negative. Flu negative Results discussed with patient including worrisome signs and symptoms and strict return precautions, and when to return to the emergency department. They verbalized understanding and feel safe for discharge at this time. Medical Decision Making Medical Decision Making [facility] Narrative: 32-year-old male with past medical history HLD, presenting to the ED complaining of dry cough, sore throat, and sinus pressure/congestion x few days. On exam mildly tachycardic, NAD, nontoxic appearing, posterior oropharyngeal erythema appreciated. No tonsillar swelling/exudates. Uvula midline. Talking in complete sentences. No sinus tenderness. Lungs CTA. Concern for viral illness vs pharyngitis vs sinusitis. No evidence of NURSE COLLEGE/retropharyngeal abscess Plan: Viral testing, rapid strep Please refer to course for remaining clinical decision making, interpretation of labs/imaging results, and discussions with consultants and/or family members. Differential Diagnosis Differential Diagnoses: The differential diagnosis associated with the presentation includes As above Lab Data [facility] Lab Attestation statement: I reviewed the patient's lab results. Labs: Lab Results 06/12/23 Range/Units 08:07 COVID-19 (NADER) Positive A (Negative) COVID-19 Clin Com See Note Influenza Type A (NEETA) Negative (Negative) Influenza Type B (NEETA) Negative (Negative) Influenza A & B Note See Note S. pyogenes GrpA NEETA Negative (Negative) External Record Review External record reviewed: Inpatient record, Office record, Outpatient record, Prior outpatient labs, Prior outpatient radiology, Primary care record and Outside ED record Tests considered The following testing was considered but not selected: As above Prescription Management I considered prescription management with: Pain Medication and Antibiotic Chronic Conditions Patient?s care impacted by: Other (HLD) Discharge Plan Discharge Clinical Impression: COVID-19 Patient Disposition: Home, Self-Care Instructions: COVID-19 (Coronavirus Disease 2019) (ED) Additional Instructions: YOU HAVE COVID-19 At this time you will be okay for discharge. Please self isolate for 5 days. Do not expose yourself to others. You may not go to work or school. Please continue to follow cold instructions and wash your hands frequently. You may take Tylenol / Motrin as directed on the bottle for pain or fever. If you have constant or persistent shortness of breath, fever unresolved with medications, chest pain, or your unable to eat or drink please return to the ED CDC Guidelines for home isolation: - Stay away from others - WEAR A MASK if you are sick AND STAY HOME - Cover your mouth and nose with a tissue when you cough or sneeze. Dispose of tissues in a lined trash can and wash your hands immediately with soap and water for at least 20 seconds. If soap and water are not available, clean hands with alcohol-based hand pot firer that contains at least 60% alcohol. - Clean your hands often with soap and water for at least 20 seconds - Avoid touching your eyes, nose and mouth with unwashed hands - Do not share dishes, drinking glasses, cups, eating utensils, towels, or bedding with other people in your home. After using these items, wash them thoroughly with soap and water or put in the supply chain design manager. - Clean high-touch surfaces in your isolation area ( sick room and bathroom) every day; let a caregiver clean and disinfect high-touch surfaces in other areas of the home. Clean the area or item with soap and water or another detergent if it is dirty. Then, use a household disinfectant. - Limit contact with pets and animals: If you must care for a pet, wash your hands before and after interacting with them) TIENES COVID-19 En lanie momento usted estar? nahun para recibir el more. Por favor, a?slese crystal 5 d?as. No te expongas a los dem?s. No puede ir al trabajo ni a la escuela. Contin?e siguiendo las instrucciones fr?as y l?vese las leticia con frecuencia. Puede bryan Tylenol/Motrin blanquita se indica en el frasco para el dolor o la fiebre. Si tiene dificultad para respirar hailey o persistente, fiebre que no se resuelve con medicamentos, dolor en el pecho o no puede comer ni beber, regrese al servicio de urgencias. Pautas de los CDC para el aislamiento en el hogar: - Mant?ngase alejado de los dem?s - [place] si est?s enfermo Y QU?DATE EN CASA - Cubrirse la boca y la nariz con un pa?uelo desechable al toser o estornudar. Deseche los pa?uelos en un bote de basura forrado y l?vese las leticia inme diatamente con agua y jab?n crystal al menos 20 segundos. Si no hay agua y jab?n disponibles, l?vese las leticia con un desinfectante para leticia a base de alcohol que contenga al menos un 60 % de alcohol. - L?vate las leticia frecuentemente con agua y jab?n crystal al menos 20 segundos. - Evite tocarse los ojos, la nariz y la boca con las leticia sucias. - No comparta platos, vasos, tazas, utensilios para comer, toallas o ropa de cama con otras personas en polanco hogar. Despu?s de usar estos art?culos, l?velos minuciosamente con agua y jab?n o p?ngalos en el lavavajillas. - Limpiar las superficies de alto contacto en polanco ?carmelo de aislamiento ( cuarto de enfermo y ba?o) todos los d?as; Deje que un cuidador limpie y desinfecte las superficies de alto contacto en otras ?reas del hogar. Limpie el ?carmelo o art?culo con agua y jab?n u otro detergente si est? sucio. Luego, use un desinfectante dom?stico. - Limitar el contacto con mascotas y animales: Si debes cuidar home mascota, l?vate las leticia antes y despu?s de interactuar con gene) Prescriptions: No Action cholecalciferol (vitamin D3) 50 mcg (2,000 unit) capsule 50 mcg PO DAILY 90 Days Qty: 90 1RF ibuprofen 800 mg tablet 800 mg PO Q8H PRN (Reason: pain) 30 Days Qty: 90 0RF Referrals: Lia Lennon MD [Primary Care Provider] - Stand Alone Forms: Work/School Release Print Language: Ukrainian
[2023-06-12 08:55] LABS: IDNOW Serial# 58CA691E; Influenza A Negative (Negative); Influenza B2 Negative (Negative)
[2023-06-12 09:17] VITALS: BP 145/70; PULSE 95; RESP 16; TEMP 37.6; O2SAT 97
== END 2023-06-12 09:30 | disposition home or self-care (01) ==
PROVIDERS: Emergency Provider Emergency Medicine; PCP Internal Medicine
DX: U07.1 COVID-19 (principal); J02.9 Acute pharyngitis, unspecified
CPT/HCPCS: 87502; 87635; 87651; 99283; 99284

== ENCOUNTER 2023-07-26 18:12 | Emergency (ER) | payer OTHER, SELFPAY ==
[2023-07-26 18:28] VITALS: BP 157/91; PULSE 104; RESP 20; TEMP 37.6; O2SAT 97; BMI 32.7
--- NOTE | 2023-07-26 18:30 | ED.WOUNDLAC ---
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 Related Data Previous Rx's Medication Instructions Recorded cholecalciferol (vitamin D3) 50 50 mcg PO DAILY 90 days #90 caps 01/04/23 mcg (2,000 unit) capsule ibuprofen 800 mg tablet 800 mg PO Q8H PRN pain 30 days #90 01/04/23 tabs cephalexin 500 mg capsule 500 mg PO BID 5 days #10 caps 07/26/23 doxycycline monohydrate 100 mg 100 mg PO BID 5 days #10 caps 07/26/23 capsule Allergies Allergy/AdvReac Type Severity Reaction Status Date / Time No Known Allergies Allergy Verified 07/26/23 18:30 [No Known Allergies*] Review of Systems Review of Systems: Pertinent positives and negatives as stated in HPI [facility] Past Medical History Source: nursing notes reviewed Medical History Back pain Surgical History No pertinent past surgical history Family History Family History Father Diabetes Mother No problems noted. Maternal Grandmother Diabetes Paternal Grandmother Diabetes Hypertension Brother No problems noted. Sister No problems noted. Son No problems noted. Daughter No problems noted. Social History Social History Housing: Apartment Alcohol intake: current Alcohol intake frequency: holidays/special occasions only Patient Tobacco Use Status: Never used Tobacco e-Cigarette/Vaping Use: Never Used Second Hand Smoke Exposure: No service: No Current occupational status: employed Current occupation: [employer] Cognitive needs: No Hearing needs: No Vision needs: Yes (nigh vision glasses) Physical Exam Vital Signs: Vital Signs: Last Vital Signs Temp 99.7 F 07/26/23 18:28 Pulse 104 H 07/26/23 18:28 Resp 20 07/26/23 18:28 BP 157/91 H 07/26/23 18:28 Pulse Ox 97 07/26/23 18:28 O2 Del Method Room Air 07/26/23 18:28 BMI result Body Mass Index 32.7 VITAL SIGNS: Reviewed. GENERAL: Well developed, well nourished, in no acute distress. HEAD: Normocephalic/atraumatic EYES: PERRLA, EOMI EARS: Ext canals without abnormality NOSE: Nares patent bilateral OROPHARYNX: no oral lesions noted, posterior pharynx clear NECK: Supple, no adenopathy LUNGS: Normal breath sounds. No adventitious sounds or accessory muscle use. SpO2<97> CARDIOVASCULAR: Regular rate and rhythm without noted murmurs ABDOMEN: Soft, non-tender, non-distended with bowel sounds. MUSCULOSKELETAL: No tenderness, deformities, or effusions noted on gross inspection. EXTREMITIES: No cyanosis, clubbing or edema. RIGHT ARM: Patient has a draining infected wound at the ulnar side of the distal right forearm with mild surrounding erythema/cellulitis SKIN: Inspection of the skin reveals no rashes NEUROLOGIC: Alert and oriented x 4. Strength and sensation to light touch were grossly intact x 4. Course Course Course Narrative: This is a rapid medical exam: Additional HPI, ROS, PE not included below will be deferred to primary provider. Infected ulcer/lesion right forearm. Recently around poison sumac and poison [place]. Thought he had an ingrown hair that he tried to pull out making the lesion worse. Medical Decision Making Medical Decision Making [facility] Narrative: 52-year-old male with history and clinical presentation most consistent with superimposed bacterial infection likely secondary to scratching due to poison [place], the wound is draining there is no discrete abscess patient discharged after receiving initial antibiotics on remaining course of antibiotics and instructions to use warm compresses. I reviewed the investigations and hematologic indices are negative for leukocytosis/left shift/thrombocytopenia. Chemistry indices negative for ALBA or electrolyte derangements. Differential Diagnosis Differential Diagnoses: The differential diagnosis associated with the presentation includes Please see the discussion above Admission/Observation Consideration of admission/observation: Escalation of care including admission/observation considered Please see the discussion above Lab Data [facility] Lab Attestation statement: I reviewed the patient's lab results. Please see the discussion above 07/26/23 19:02 07/26/23 19:02 Labs: Lab Results 03/06/24 Range/Units 19:02 WBC 10.8 (4.8-10.8) X10*3/uL RBC 5.02 (4.60-5.80) X10*6/uL Hgb 14.2 (14.0-18.0) g/dl Hct 42.2 (42.0-52.0) % MCV 84.1 (80.0-98.0) fL MCH 28.3 (27.0-33.0) pg MCHC 33.6 (31.0-36.0) g/dl RDW 13.2 (11.0-16.0) % Plt Count 234 (160-400) X10*3/uL MPV 10.5 (9.4-12.4) fL Immature Gran % (Auto) 0.2 (0.0-0.4) % Neut % (Auto) 74.1 H (45-73) % Lymph % (Auto) 19.3 L (20-40) % Sioux % (Auto) 5.4 (2-11) % Eos % (Auto) 0.7 (0-4) % Baso % (Auto) 0.3 (0-2) % Lymph # (Auto) 2.1 (1.2-4.9) X10*3/uL Sioux # (Auto) 0.6 (0.1-1.2) X10*3/uL Eos # (Auto) 0.1 (0.0-0.4) X10*3/uL Baso # (Auto) 0.0 (0.0-0.2) X10*3/uL Abs Immat Gran (auto) 0.02 (0.00-0.03) X10*3/uL Absolute Neuts (auto) 8.0 (2.0-8.3) x10*3/uL Absolute Nucleated RBC 0.000 (0.0-0.012) X10*3/uL Nucleated RBC % (auto) 0.0 (0.0-0.2) /100WBC Sodium 139 (135-145) mmol/L Potassium 3.7 (3.3-5.1) mmol/L Chloride 106 (96-108) mmol/L Carbon Dioxide 25 (22-29) mmol/L Anion Gap 12 (12-20) BUN 15 (9-16) mg/dL Creatinine 0.94 (0.5-1.4) mg/dL Estim Creat Clear Calc 128.9 Estimated GFR > 60 Random Glucose 109 (60-115) mg/dL Lactic Acid 1.2 (0.5-2.0) mmol/L Calcium 9.5 (8.4-10.2) mg/dL Discharge Plan Discharge Clinical Impression: Wound infection, Cellulitis Patient Disposition: Home, Self-Care Instructions: Cellulitis (ED), Warm Compress or Soak (ED) Additional Instructions: 1. Complete todo el tratamiento con antibi?ticos seg?n lo prescrito. 2. Utilice compresas h?medas y tibias blanquita m?steven crystal los pr?ximos 2 d?as y luego limpie con agua y jab?n y aplique un vendaje protector mientras trabaja. 3. Seguimiento con m?dico de atenci?n primaria en los pr?ximos 2-3 d?as. Regrese a la jossy de emergencias si los s?ntomas empeoran. 1. Complete the entire course of antibiotics as prescribed . 2. Use warm moist compresses at a minimum for the next 2 days and then cleanse with soap and water and apply a protective dressing while working. 3. Follow-up with primary care doctor in the next 2-3 days. Return to the ER for any worsening symptoms. Prescriptions: New cephalexin 500 mg capsule 500 mg PO BID 5 Days Qty: 10 0RF doxycycline monohydrate 100 mg capsule 100 mg PO BID 5 Days Qty: 10 0RF No Action cholecalciferol (vitamin D3) 50 mcg (2,000 unit) capsule 50 mcg PO DAILY 90 Days Qty: 90 1RF ibuprofen 800 mg tablet 800 mg PO Q8H PRN (Reason: pain) 30 Days Qty: 90 0RF Referrals: Lia Lennon MD [Primary Care Provider] - Print Language: Beninese
[2023-07-26 19:06] LABS: MANUAL DIFF FLAG NO
[2023-07-26 19:08] LABS: Basophils Percent Auto 0.3 % (0-2); Eosinophils Absolute Auto 0.1 X10*3/uL (0.0-0.4); Eosinophils Percent Auto 0.7 % (0-4); Hematocrit 42.2 % (42.0-52.0); Hemoglobin 14.2 g/dl (14.0-18.0); Imm Gran Abs Auto 0.02 X10*3/uL (0.00-0.03); Imm Gran Pct Auto 0.2 % (0.0-0.4); Lymphocytes Absolute Auto 2.1 X10*3/uL (1.2-4.9); Lymphocytes Percent Auto 19.3 % (20-40); Mean Corpuscular HGB Conc 33.6 g/dl (31.0-36.0); Mean Corpuscular Hemoglobin 28.3 pg (27.0-33.0); Mean Corpuscular Volume 84.1 fL (80.0-98.0); Mean Platelet Volume 10.5 fL (9.4-12.4); Monocytes Absolute Auto 0.6 X10*3/uL (0.1-1.2); Monocytes Percent Auto 5.4 % (2-11); Neutrophils Percent Auto 74.1 % (45-73); Platelet Count 234 X10*3/uL (160-400); Red Blood Count 5.02 X10*6/uL (4.60-5.80); Red Cell Distribution Width 13.2 % (11.0-16.0); White Blood Count 10.8 X10*3/uL (4.8-10.8)
[2023-07-26 19:18] LABS: Lactic Acid 1.2 mmol/L (0.5-2.0)
[2023-07-26 19:21] LABS: Anion Gap 12 (12-20); Blood Urea Nitrogen 15 mg/dL (9-16); Calcium 9.5 mg/dL (8.4-10.2); Carbon Dioxide 25 mmol/L (22-29); Chloride 106 mmol/L (96-108); Creatinine Clr Calc Pharmacy 128.9; Estimated Glomerular Filt Rate > 60; Glucose Random 109 mg/dL (60-115); Potassium 3.7 mmol/L (3.3-5.1); Sodium 139 mmol/L (135-145)
[2023-07-26] MEDS: Doxycycline Monohydrate 100 MG CAPSULE PO (21:49)
[2023-07-26] MEDS: cephALEXin 500 MG CAPSULE PO (21:49)
== END 2023-07-26 21:51 | disposition home or self-care (01) ==
PROVIDERS: Nurse Practitioner Family; Emergency Provider Student in an Organized Health Care Education/Training Program; PCP Internal Medicine
DX: S51.801A Unspecified open wound of right forearm, initial encounter (principal); L03.113 Cellulitis of right upper limb; X58.XXXA Exposure to other specified factors, initial encounter; Y93.9 Activity, unspecified; Y92.9 Unspecified place or not applicable; Y99.9 Unspecified external cause status
CPT/HCPCS: 36415; 80048; 83605; 85025; 99282; 99283

== ENCOUNTER 2023-09-12 16:07 | Outpatient (AMB) | payer SELFPAY ==
[2023-09-12 16:09] VITALS: BP 124/72; PULSE 82; O2SAT 98; BMI 31.6
--- NOTE | 2023-09-12 16:09 | MHC.PC.OV ---
Vital Signs 09/12/23 16:09 Height 5 ft 8 in Weight 208 lb BMI 31.6 BP 124/72 Blood Pressure Location Lt brachial Position Sitting Pulse 82 Pulse Source Pulse Oximeter Pulse Oximetry (%) 98 Oxygen Delivery Method Room Air Intake Visit Reasons: Rt arm abrasion/soar Proposal Lead Writer Required: No Accompanied by: Significant Other Allergies No Known Allergies [No Known Allergies*] Allergy (Verified 09/12/23 16:24) Medication List - Last Reconciled 09/12/23 by iLa Mcqueen MD cholecalciferol (vitamin D3) 50 mcg PO DAILY 90 days ibuprofen 800 mg PO Q8H PRN 30 days Tobacco use date assessed: 09/12/23 Dental Screening Dental Screen Date: 01/04/23 HPI HPI Comments History of Present Illness Details Patient complains of a tender skin lesion in the right forearm that has been present for about 2 weeks. It is erythematous and dry. With time. Also has another skin lesion that has pause and antibiotic will be started. [facility] Medical History (Updated 09/12/23 @ 18:35 by Lia Mcqueen MD) Back pain Surgical History No pertinent past surgical history Family History Father Diabetes Mother No problems noted. Maternal Grandmother Diabetes Paternal Grandmother Diabetes Hypertension Brother No problems noted. Sister No problems noted. Son No problems noted. Daughter No problems noted. Social History Housing: Apartment Alcohol intake: current Alcohol intake frequency: holidays/special occasions only Patient Tobacco Use Status: Never used Tobacco e-Cigarette/Vaping Use: Never Used Second Hand Smoke Exposure: No service: No Current occupational status: employed Current occupation: [employer] Cognitive needs: No Hearing needs: No Vision needs: Yes (nigh vision glasses) Questionnaire PHQ-9 Over the last 2 weeks, how often have you been bothered by any of the following problems? 1. Little interest or pleasure in doing things: not at all 2. Feeling down, depressed, or hopeless: not at all 3. Trouble falling or staying asleep, or sleeping too much: not at all 4. Feeling tired or having little energy: not at all 5. Poor appetite or overeating: not at all 6. Feeling bad about yourself - or that you are a failure or have let yourself or your family down: not at all 7. Trouble concentrating on things, such as reading the newspaper or watching television: not at all 8. Moving or speaking so slowly that other people could have noticed. Or the opposite - being so fidgety or restless that you have been moving around a lot more than usual: not at all 9. Thoughts that you would be better off or of hurting yourself in some way: not at all Total score: 0 Depression Screening Interpretation: Negative Depression Screening Done: Yes 38706 - PHQ-9 Billing: Yes Source: Developed by Drs. Hua Cross, Isamar Carmichael, Javan Farrell and colleagues, with an educational mirza from [employer]. Thrive Questionnaire Date Thrive assessed: 09/12/23 I am a: Patient What is your living situation today?: I have a steady place to live Within the past 12 months, did the food you bought not last and you didn't have the money to get more?: Never true Within the past 12 months, did you worry whether your food would run out before you got money to buy more?: Never true Do you have trouble paying for medicines?: No Do you have trouble getting transportation to medical appointments?: No Do you have trouble paying your heating and electricity bill?: No Do you have trouble taking care of your child, family member or friend?: No Do you have trouble with day-to-day activities such as bathing, preparing meals, shopping, managing finances, etc.?: No Are you currently unemployed and looking for a job?: No Are you interested in more education?: No Please select the resources that you would like help with: None Currently or been in a relationship where the following occur: no concerns reported THRIVE Score: 0 AUDIT C Alcohol Use Questionnaire (AUDIT-C) 1. How often do you have a drink containing alcohol?: Monthly or less 2. How many drinks containing alcohol do you have on a typical day when you are drinking?: 1 or 2 3. How often do you have six or more drinks on one occasion?: Never Total Score: 1 Score Reviewed/Action Taken: No RONAL-7 AMB Questionnaire RONAL-7 Date RONAL - 7 assessed: 09/12/23 Source: Developed by Drs. Hua Cross, Isamar Carmichael, Javan Farrell and colleagues, with an educational mirza from [employer]. Review of Systems Const All systems reviewed & are unremarkable except as noted in HPI and below Skin/Breast Denies bleeding lesions, Denies changing lesions and Denies rash Physical exam (Primary Care) Vital Signs: Last Vital Signs Pulse 82 09/12/23 16:09 BP 124/72 09/12/23 16:09 Pulse Ox 98 09/12/23 16:09 Oxygen Delivery Method Room Air 09/12/23 16:09 BMI result Body Mass Index 31.6 Tobacco/Smoking Status: Tobacco use Status Tobacco use date assessed 09/12/23 09/12/23 16:11 Patient Tobacco Use Status Never used Tobacco 09/12/23 16:11 e-Cigarette/Vaping Use Never Used 09/12/23 16:11 PHQ-9: PHQ-9 Score PHQ-9: Total score 0 09/12/23 16:29 Depression Screening Interpretation: Negative Thrive Assessment: Date of Thrive Assessment Date Thrive assessed 09/12/23 09/12/23 16:11 Currently or been in a relationship where the following occur: no concerns reported Skin General skin exam: no rashes or lesions noted Extrem General: Yes full ROM Assessment and Plan Assessment & Plan (1) Skin lesion: Code(s): L98.9 - Disorder of the skin and subcutaneous tissue, unspecified Plan: Cream sent Medications: New triamcinolone acetonide 0.5% 1 appl topical BID 15 grams 0RF 2 weeks sulfamethoxazole-trimethoprim 800-160 mg (Bactrim DS) 1 tab PO BID 14 tabs 0RF 7 days Coding Level of Care Code Est Pt Level 3 (30550) Diagnoses Skin lesion L98.9 Time Spent (min) 17
== END 2023-09-12 16:34 | disposition home or self-care (01) ==
PROVIDERS: PCP Internal Medicine; Visit Provider Internal Medicine
DX: L98.9 Disorder of the skin and subcutaneous tissue, unspecified (principal)
CPT/HCPCS: 99213

== ENCOUNTER 2024-01-10 15:57 | Outpatient (AMB) | payer OTHER, SELFPAY ==
--- NOTE | 2024-01-10 16:01 | A.OFFPC_ITS ---
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 by: Significant Other Allergies No Known Allergies [No Known Allergies*] Allergy (Verified 01/10/24 16:11) Medication List - Last Reconciled 01/10/24 by Lia Mcqueen MD No Known Home Meds Tobacco use date assessed: 09/12/23 Dental Screening Dental Screen Date: 01/10/24 Did you have a dental visit in the last 12 months?: Yes Did you have a dental problem in the last 6 months where you did not have access to dental care?: No Was dental information given to patient?: Patient has dentist HPI HPI Comments History of Present Illness Details This is a 33-year-old male that comes for his physical exam accompanied by . He complains of back pain that radiates to both legs and also has chest pain located in the middle of the chest that happens at rest that he thinks it could be heartburn. [facility] Medical History (Updated 01/10/24 @ 16:21 by Lia Mcqueen MD) Back pain Surgical History No pertinent past surgical history Family History Father Diabetes Mother Anxiety Maternal Grandmother Diabetes Paternal Grandmother Diabetes Hypertension Brother No problems noted. Sister No problems noted. Son No problems noted. Daughter No problems noted. Social History (Updated 01/10/24 @ 16:14 by Lia Mcqueen MD) Housing: Apartment Alcohol intake: current Alcohol intake frequency: holidays/special occasions only Alcohol type: beer, wine and hard liquor Patient Tobacco Use Status: Never used Tobacco e-Cigarette/Vaping Use: Never Used Second Hand Smoke Exposure: No service: No Current occupational status: employed Current occupation: [employer] Current occupational exposures/hazards: No Cognitive needs: No Hearing needs: No Vision needs: Yes (nigh vision glasses) Questionnaire PHQ-9 Over the last 2 weeks, how often have you been bothered by any of the following problems? 1. Little interest or pleasure in doing things: not at all 2. Feeling down, depressed, or hopeless: not at all 3. Trouble falling or staying asleep, or sleeping too much: not at all 4. Feeling tired or having little energy: not at all 5. Poor appetite or overeating: not at all 6. Feeling bad about yourself - or that you are a failure or have let yourself or your family down: not at all 7. Trouble concentrating on things, such as reading the newspaper or watching television: not at all 8. Moving or speaking so slowly that other people could have noticed. Or the opposite - being so fidgety or restless that you have been moving around a lot more than usual: not at all 9. Thoughts that you would be better off or of hurting yourself in some way: not at all Total score: 0 Source: Developed by Drs. Hua Cross, Isamar Carmichael, Javan Farrell and colleagues, with an educational mirza from [employer]. Thrive Questionnaire Date Thrive assessed: 09/12/23 AUDIT C Alcohol Use Questionnaire (AUDIT-C) 1. How often do you have a drink containing alcohol?: Monthly or less 2. How many drinks containing alcohol do you have on a typical day when you are drinking?: 1 or 2 3. How often do you have six or more drinks on one occasion?: Never Total Score: 1 Score Reviewed/Action Taken: No RONAL-7 AMB Questionnaire RONAL-7 Date RONAL - 7 assessed: 01/10/24 Feeling nervous, anxious, or on edge: 0 = Not at all Not being able to stop or control worryin = Not at all Worrying too much about different things: 0 = Not at all Trouble relaxin = Not at all Being so restless that it is hard to sit still: 0 = Not at all Becoming easily annoyed or irritable: 0 = Not at all Feeling afraid as if something awful might happen: 0 = Not at all Total RONAL-7 score (0-4 normal; 5-9 mild; 10-14 moderate; 15-21 severe): 0 Source: Developed by Drs. Hua Cross, Isamar Carmichael, Javan Farrell and colleagues, with an educational mirza from [employer]. RONAL-7 Assessment Billing RONAL-7 Assessment Tool: RONAL-7 Assessment 06023 Review of Systems Const All systems reviewed & are unremarkable except as noted in HPI and below Card Reports chest pain at rest, Denies chest pain with activity, Denies edema, Denies irregular heart rhythm, Denies claudication, Denies dyspnea, Denies dyspnea on exertion, Denies orthopnea, Denies paroxysmal nocturnal dyspnea and Denies slow heart rate Resp Denies cough, Denies dyspnea and Denies dyspnea on exertion GI Denies abdominal pain, Denies change in bowel habits, Denies excessive flatus, Reports heartburn, Denies nausea and Denies vomiting Denies urinary hesitancy, Denies urinary incontinence and Denies urinary urgency Musc Reports back pain and Reports radiating pain into limb Physical exam (Primary Care) Vital Signs: Last Vital Signs BP 120/80 01/10/24 16:02 BMI result Body Mass Index 31.5 Tobacco/Smoking Status: Tobacco use Status Tobacco use date assessed 09/12/23 01/10/24 16:06 Patient Tobacco Use Status Never used Tobacco 01/10/24 16:06 e-Cigarette/Vaping Use Never Used 01/10/24 16:06 Thrive Assessment: Date of Thrive Assessment Date Thrive assessed 09/12/23 01/10/24 16:06 HENAR Head: Yes normal to inspection, Yes normocephalic and Yes atraumatic Ears: external ears normal Eyes General: appearance normal, both eyes and all related structures Eyelids: Yes eyelids normal Conjunctivae: conjunctivae normal Neck Neck: Yes normal visual inspection and Yes supple Resp Effort & Inspection: normal respiratory effort Auscultation: clear to auscultation bilaterally Cardio Jugular venous distension: no JVD Rate: regular rate Rhythm: regular rhythm Heart sounds: S1 normal heart sound present and S2 normal heart sound present GI Inspection: Yes normal to inspection Palpation (GI): Soft to palpation and nontender Auscultation: normal bowel sounds Skin General skin exam: no rashes or lesions noted Neuro General: no focal motor deficits Extrem General: Yes full ROM Psych Appearance: grossly normal Assessment and Plan Assessment & Plan (1) Adult general medical exam: Code(s): Z00.00 - Encounter for general adult medical examination without abnormal findings Plan: Repeat in a year. (2) GERD (gastroesophageal reflux disease): Code(s): K21.9 - Gastro-esophageal reflux disease without esophagitis Plan: Start PPIs as needed. (3) Chest pain: Code(s): R07.9 - Chest pain, unspecified Plan: EKG ordered. (4) Bilateral sciatica: Code(s): M54.31 - Sciatica, right side; M54.32 - Sciatica, left side Plan: X-ray ordered. Start pain medication as needed. Was advised to use a back brace at work. Orders: Orders Lipid Panel Today Z00.00 - Encounter for general adult medical examination without abnormal findings FL upper GI series Today K21.9 - Gastro-esophageal reflux disease without esophagitis XR lumbar spine 2-3V Today M54.31 - Sciatica, right side, M54.32 - Sciatica, left side Vitamin D 25-OH Total Today E55.9 - Vitamin D deficiency, unspecified Comprehensive [place]. Panel Fast Today Z00.00 - Encounter for general adult medical examination without abnormal findings ECG 12 lead EKG Today R07.9 - Chest pain, unspecified Medications: New omeprazole 20 mg PO DAILY 90 days 90 caps 1RF K21.9 - Gastro-esophageal reflux disease without esophagitis meloxicam 15 mg PO DAILY 90 days 90 tabs 1RF M54.31 - Sciatica, right side, M54.32 - Sciatica, left side Coding Level of Care Code Est Pt Level 3 (33873) Est Pt Prev Care 18-39y(37938) Diagnoses Adult general medical exam Z00.00 GERD (gastroesophageal reflux disease) K21.9 Chest pain R07.9 Bilateral sciatica M54.31; M54.32 Additional Codes RONAL-7 Assessment Billing - RONAL-7 Assessment Tool: RONAL-7 Assessment 27631 ([id number]) Time Spent (min) 33
[2024-01-10 16:02] VITALS: BP 120/80; BMI 31.5
== END 2024-01-10 16:25 | disposition home or self-care (01) ==
PROVIDERS: PCP Internal Medicine; Visit Provider Internal Medicine
DX: Z00.00 Encounter for general adult medical examination without abnormal findings (principal); K21.9 Gastro-esophageal reflux disease without esophagitis; R07.9 Chest pain, unspecified; M54.31 Sciatica, right side; M54.32 Sciatica, left side
CPT/HCPCS: 99213; 99395

== ENCOUNTER 2024-03-27 08:59 | Outpatient (REF) | payer OTHER, SELFPAY ==
--- NOTE | ~2024-03-27 | FL_ITS ---
EXAMINATION: XR FLUOROSCOPY UPPER GI WITH AIR CLINICAL INFORMATION: Reflux COMPARISON: None TECHNIQUE: Fluoroscopic air contrast upper GI examination was performed utilizing standard techniques with thin and thick barium and effervescent granules. Numerous spot images were obtained. FINDINGS: Dual and single contrast images of the esophagus demonstrate normal caliber, contour, and mucosal pattern. No evidence of stricture, mass, or ulcerations identified. Esophageal peristalsis was normal. No evidence of hiatus hernia identified. Significant gastroesophageal reflux is seen up to the thoracic inlet. Dual contrast and single contrast images of the stomach demonstrated a normal contour. There is a thickened appearance of the areae gastrica, suggestive of gastritis. No masses or ulcerations are seen. Contrast freely passed into the gastric antrum and duodenal bulb without delay. Single and air-contrast images of the duodenal bulb demonstrate no abnormality. The duodenal sweep has a normal appearance, course, and mucosal fold appearance. The imaged proximal jejunum has a normal fold pattern and caliber. FLUOROSCOPY TIME: 2 minutes 30 seconds Number of Spot Images: 9 Number of Cine: 13 DOSE AREA PRODUCT: 1832 uGy-m2 (microgray-meter squared) FL/FL upper GI series IMPRESSION: 1. Severe gastroesophageal reflux. 2. Thickened appearance of the areae gastrica, suggestive of gastritis. This procedure was performed by Juno Yepez PA-C, and supervised by Dr. Padron Electronically signed by: Onur Padron MD 03/27/2024 12:48 PM [facility]
--- NOTE | 2024-03-27 09:42 | ECG_ITS ---
Test Reason : R07.9 - Chest pain, unspecified Blood Pressure : / mmHG Vent. Rate : 051 BPM Atrial Rate : 051 BPM P-R Int : 174 ms QRS Dur : 100 ms QT Int : 412 ms P-R-T Axes : 039 052 021 degrees QTc Int : 379 ms Sinus bradycardia with marked sinus arrhythmia Otherwise normal ECG No previous ECGs available Referred By: Lia Mcqueen Electronically Signed By:JUDSON SEVILLA MD
== END 2024-03-27 09:00 | disposition home or self-care (01) ==
LOC: HO.XRAY 08:59
PROVIDERS: PCP Internal Medicine; Visit Provider Internal Medicine
DX: M54.31 Sciatica, right side (principal); M54.32 Sciatica, left side; K21.9 Gastro-esophageal reflux disease without esophagitis; R07.9 Chest pain, unspecified
CPT/HCPCS: 36415; 72100; 74240; 80053; 80061; 82306; 93005

== ENCOUNTER → 2024-03-27 09:06 | Outpatient (BNV) | payer OTHER, SELFPAY | PROVIDERS: PCP Internal Medicine; Visit Provider Physician Assistant Surgical | DX: K21.9 Gastro-esophageal reflux disease without esophagitis (principal) | CPT/HCPCS: 74246 ==

== ENCOUNTER → 2024-03-27 09:42 | Outpatient (BNV) | payer OTHER, SELFPAY | PROVIDERS: PCP Internal Medicine; Visit Provider Internal Medicine Cardiovascular Disease | DX: R07.9 Chest pain, unspecified (principal) | CPT/HCPCS: 93010 ==

== ENCOUNTER 2024-04-27 08:13 | Outpatient (REF) | payer OTHER, SELFPAY ==
[2024-04-27 10:51] LABS: Alanine Aminotransferase 61 U/L (0-40); Albumin Level 4.4 g/dL (3.5-5.0); Alkaline Phosphatase 106 U/L (39-117); Anion Gap 12 (12-20); Aspartate Amino Transferase 29 U/L (5-37); Bilirubin Total 0.6 mg/dL (0.0-1.0); Blood Urea Nitrogen 14 mg/dL (9-16); Calcium 9.6 mg/dL (8.4-10.2); Carbon Dioxide 26 mmol/L (22-29); Chloride 105 mmol/L (96-108); Cholesterol 282 mg/dL (<200); Estimated Glomerular Filt Rate > 60; Glucose Fasting 95 mg/dL (60-99); HDL Cholesterol 41 mg/dL (>40); LDL Cholesterol Calculated 216 mg/dL (<100); Potassium 4.3 mmol/L (3.3-5.1); Sodium 139 mmol/L (135-145); Total Protein 7.7 g/dL (6.5-8.0); Triglycerides 125 mg/dL (<150)
== END 2024-04-27 08:14 | disposition home or self-care (01) ==
LOC: HO.LAB 08:13
PROVIDERS: PCP Internal Medicine; Visit Provider Internal Medicine
DX: R07.9 Chest pain, unspecified (principal); E78.5 Hyperlipidemia, unspecified
CPT/HCPCS: 36415; 80053; 80061

== ENCOUNTER 2024-08-15 09:12 | Outpatient (AMB) | payer OTHER, SELFPAY ==
--- NOTE | 2024-08-15 09:15 | MHC.OFFVIS ---
Vital Signs 08/15/24 09:18 Height 5 ft 8 in Weight 197 lb 1.492 oz BMI 30.0 Blood Pressure Location Rt brachial Position Sitting Intake Visit Reasons: Consult Gerd Intake Note: New patient in office today for GERD. CC: Patient reports that he was having heartburn but he changed his diet and is now doing better. He reports he had seen a little bit of blood with BM when he does not drink enough water and gets constipation. Patient had Upper GI study done in March last year. 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 He is referred by Lia Lennon. PMX High cholesterol Sinus bradycardia Lumbar degenerative disc disease with sciatica GERD * SURGICAL HISTORY Pt denies * ALLERGIES: NKDA * [employer] LABS: Laboratory Tests 04/27/24 08:55 Estimated GFR > 60 Total Bilirubin 0.6 AST 29 ALT 61 H Alkaline Phosphatase 106 UPPER GI SERIES 03/27/24 FINDINGS: Dual and single contrast images of the esophagus demonstrate normal caliber, contour, and mucosal pattern. No evidence of stricture, mass, or ulcerations identified. Esophageal peristalsis was normal. No evidence of hiatus hernia identified. Significant gastroesophageal reflux is seen up to the thoracic inlet. Dual contrast and single contrast images of the stomach demonstrated a normal contour. There is a thickened appearance of the areae gastrica, suggestive of gastritis. No masses or ulcerations are seen. Contrast freely passed into the gastric antrum and duodenal bulb without delay. Single and air-contrast images of the duodenal bulb demonstrate no abnormality. The duodenal sweep has a normal appearance, course, and mucosal fold appearance. The imaged proximal jejunum has a normal fold pattern and caliber. FLUOROSCOPY TIME: 2 minutes 30 seconds Number of Spot Images: 9 Number of Cine: 13 DOSE AREA PRODUCT: 1832 uGy-m2 (microgray-meter squared) FL/FL upper GI series IMPRESSION: 1. Severe gastroesophageal reflux. 2. Thickened appearance of the areae gastrica, suggestive of gastritis. TODAY'S VISIT [place] [employer] [employer] He tells me that his reflux has completely resolved over the past 3 months. He is not on any medication, he credits this to changing his diet in accordance to best GERD recommendations along with his changing how she cooks. He has also lost a little bit of weight. He did ask what he should take if he has breakthrough symptoms and I suggested Tums since that has calcium which has nutritive value. If that does not seem to be working he could also try Pepcid. I went over the upper GI study and since he has no abdominal pain I find that the ?gastritis? reading likely is simply under distention of the stomach. I do not believe any further workup is necessary at this point but he is always welcome to return to our services. [facility] Medical History (Updated 08/15/24 @ 09:18 by IGNACIA Quintanilla) Back pain Screening for diabetes mellitus Adult general medical exam Screening for hypothyroidism COVID-19 Surgical History No pertinent past surgical history Family History Father Diabetes Mother Anxiety Maternal Grandmother Diabetes Paternal Grandmother Diabetes Hypertension Brother No problems noted. Sister No problems noted. Son No problems noted. Daughter No problems noted. Social History (Updated 01/10/24 @ 16:14 by Lia Mcqueen MD) Housing: Apartment Alcohol intake: current Alcohol intake frequency: holidays/special occasions only Alcohol type: beer, wine and hard liquor Patient Tobacco Use Status: Never used Tobacco e-Cigarette/Vaping Use: Never Used Second Hand Smoke Exposure: No service: No Current occupational status: employed Current occupation: [employer] Current occupational exposures/hazards: No Cognitive needs: No Hearing needs: No Vision needs: Yes (nigh vision glasses) Review of Systems Const Denies fatigue, Denies fever(s), Denies night sweats, Denies poor appetite and Reports weight loss ENT Reports Normal hearing present, Denies dental pain, Denies dysphagia, Denies hearing loss, Denies mouth pain, Denies odynophagia, Denies throat swelling, Denies tongue swelling and Reports other (Dentition adequate) Card Reports no additional complaints Resp Reports no additional complaints GI Details: Denies abdominal pain, Denies melena, Denies bloating, Denies hematochezia, Denies constipation, Denies GI cramping, Denies dysphagia, Denies excessive flatus, Denies early satiety, Reports heartburn, Denies diarrhea, Denies nausea, Denies odynophagia, Denies vomiting and Denies hematemesis Skin/Breast Denies pruritus, Denies lesions, Denies rash and Denies jaundice Neuro Reports Normal hearing present and Denies Abnormal speech present Endo Denies fatigue Aller/Immun Denies throat swelling and Denies tongue swelling Physical Exam Const General: cooperative, no acute distress, well developed and well groomed Nutritional Appearance: average body habitus and well nourished Orientation/consciousness: oriented to person, oriented to place and oriented to time Limitations: language barrier HEENT Head: Yes normocephalic and Yes atraumatic Eyes General: appearance normal, both eyes and all related structures Pupils: Equal, round and reactive pupils present Neck Neck: Yes normal visual inspection and Yes no lymphadenopathy Thyroid: Thyroid normal Resp Effort & Inspection: normal respiratory effort and able to speak in complete sentences Auscultation: clear to auscultation bilaterally Cardio Rate: regular rate Rhythm: regular rhythm Heart sounds: Normal, physiologic split S2 sound present Peripheral pulses: radial pulses present and posterior tibial pulses present GI Inspection: No distended and No Abdominal panniculus present Palpation (GI): Soft to palpation, nontender, no guarding, not rigid and No hepatosplenomegaly present Percussion: Yes normal to percussion Auscultation: normal bowel sounds Rectal Exam - Male: Yes deferred Skin General skin exam: no rashes or lesions noted, turgor normal, skin not dry, no jaundice, No spider nevi and no striae Rashes: no rashes Nails: normal Neuro General: oriented to person, oriented to place and oriented to time Cranial nerves: Yes Equal, round and reactive pupils present and Yes Normal hearing present Speech: No Abnormal speech present Extrem General: Yes normal to inspection, No clubbing, No cyanosis and No edema Psych Appearance: grossly normal and well kempt Mental Status: mental status grossly normal Speech and movement: Normal speech and movement present Affect: normal affect Attitude: cooperative Thought process: Normal thought process present and not confabulating Thought content: Normal thought content present Insight: Good insight present (Psych) Judgement: Good judgement present (Psych) Assessment & Plan Assessment & Plan (1) GERD (gastroesophageal reflux disease): Code(s): K21.9 - Gastro-esophageal reflux disease without esophagitis Category: Medical Plan [place] [employer] He tells me that his reflux has completely resolved over the past 3 months. He is not on any medication, he credits this to changing his diet in accordance to best GERD recommendations along with his changing how she cooks. He has also lost a little bit of weight. He did ask what he should take if he has breakthrough symptoms and I suggested Tums since that has calcium which has nutritive value. If that does not seem to be working he could also try Pepcid. I went over the upper GI study and since he has no abdominal pain I find that the ?gastritis? reading likely is simply under distention of the stomach. I do not believe any further workup is necessary at this point but he is always welcome to return to our services. P.r.n Coding Level of Care Code New Pt Level 3 (34858) Diagnoses GERD (gastroesophageal reflux disease) K21.9
== END 2024-08-15 09:51 | disposition home or self-care (01) ==
LOC: HO.HGI 09:13
PROVIDERS: PCP Internal Medicine; Visit Provider Nurse Practitioner
DX: K21.9 Gastro-esophageal reflux disease without esophagitis (principal)
CPT/HCPCS: 99203

== ENCOUNTER → 2024-08-15 09:12 | Outpatient (BNVA) | payer OTHER, SELFPAY | PROVIDERS: PCP Internal Medicine; Visit Provider Nurse Practitioner | DX: K21.9 Gastro-esophageal reflux disease without esophagitis (principal) | CPT/HCPCS: 99202 ==

== ENCOUNTER 2024-09-18 14:52 | Outpatient (AMB) | payer OTHER, SELFPAY ==
[2024-09-18 14:57] VITALS: BP 120/72; PULSE 87; BMI 30.8
--- NOTE | 2024-09-18 14:57 | MHC.OFFVIS ---
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 Patient at that time was having symptoms of retrosternal chest discomfort, symptoms mostly happening after eating. He was subsequently seen GI specialist and was diagnose acid reflux disease but not prescribed any long-term medications for it. He said his symptoms have improved after change in his tired and uses Tums as needed. Patient also history of hyperlipidemia. He had slow heart rate detected during that time when he was having active chest pain. This most likely is suggestive of enhance vagal tone related to the pain. Today comes in without any other obvious cardiac symptoms. 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 Has never had any lightheadedness, syncope. He was no cardiac symptoms. Does not notice any low heart rate. [facility] Medical History Back pain Screening for diabetes mellitus Adult general medical exam Screening for hypothyroidism COVID-19 Surgical History No pertinent past surgical history Family History Father Diabetes Mother Anxiety Maternal Grandmother Diabetes Paternal Grandmother Diabetes Hypertension Brother No problems noted. Sister No problems noted. Son No problems noted. Daughter No problems noted. Social History Housing: Apartment Alcohol intake: current Alcohol intake frequency: holidays/special occasions only Alcohol type: beer, wine and hard liquor Patient Tobacco Use Status: Never used Tobacco e-Cigarette/Vaping Use: Never Used Second Hand Smoke Exposure: No service: No Current occupational status: employed Current occupation: [employer] Current occupational exposures/hazards: No Cognitive needs: No Hearing needs: No Vision needs: Yes (nigh vision glasses) Review of Systems Const Denies chills, Denies daytime sleepiness, Denies fatigue, Denies fever(s), Denies frequent falls, Denies poor appetite, Denies snoring, Denies stops breathing during sleep, Denies weakness, Denies weight gain and Denies weight loss Eyes Denies loss of vision ENT Denies dizziness and Denies hearing loss Card Denies chest pain, Denies claudication, Denies leg edema, Denies lightheadedness, Denies palpitations, Denies dyspnea, Denies dyspnea on exertion and Denies orthopnea Resp Denies cough, Denies excessive phlegm production, Denies dyspnea, Denies dyspnea on exertion, Denies snoring and Denies wheezing GI Denies abdominal pain, Denies hematochezia, Denies change in bowel habits, Denies nausea and Denies vomiting Denies dysuria and Denies urinary frequency Musc Denies arthralgias, Denies muscle weakness, Denies numbness and Denies other (frequent falls) Skin/Breast Denies nail changes and Denies rash Neuro Denies Abnormal speech present, Denies dizziness, Denies frequent falls, Denies loss of vision, Denies memory loss, Denies numbness and Denies weakness Psych Denies depression and Denies memory loss Endo Denies fatigue and Denies palpitations Lucio/Lymph Reports easy bruising and Reports other (anemia) Aller/Immun Denies wheezing Physical Exam Vital Signs: Last Vital Signs Pulse 87 09/18/24 14:57 BP 120/72 09/18/24 14:57 BMI result Body Mass Index 30.8 Const General: cooperative, comfortable, no acute distress, well developed, alert, awake and Physically active Nutritional Appearance: average body habitus and well nourished Orientation/consciousness: patient oriented x3 Limitations: no limitations HEENT Head: Yes normocephalic and Yes atraumatic Neck Neck: Yes trachea midline, Yes supple and Yes no JVD Resp Effort & Inspection: normal respiratory effort Auscultation: clear to auscultation bilaterally Cardio Jugular venous distension: no JVD Palpation: normal PMI Rate: regular rate Rhythm: regular rhythm Heart sounds: S1 normal heart sound present, S2 normal heart sound present, no click, no gallops, no murmurs and no rubs GI Auscultation: normal bowel sounds Skin General skin exam: no rashes or lesions noted Neuro General: patient oriented x3 and no focal motor deficits Speech: No Abnormal speech present Extrem General: Yes no clubbing, cyanosis or edema Psych Appearance: grossly normal Office Procedures EKG Details: EKG shows normal sinus rhythm normal EKG [id number], Complete Assessment & Plan Assessment & Plan (1) Sinus bradycardia: Code(s): R00.1 - Bradycardia, unspecified Category: Medical Plan: Sinus bradycardia which is normal in young person in his especially in the setting of pain which enhance vagal tone. This is a physiologic heart rate. At this point time he was no symptoms. EKG today shows normal heart rate. No further workup is indicated at this point time. Discussed with him with help of barrel bung remover and dumper. He showed understanding. (2) Chest pain: Code(s): R07.9 - Chest pain, unspecified Category: Medical Plan: Retrosternal chest pain which appears to be gastric in nature most likely related to acid reflux disease. Does not appear to be cardiac in nature. No further cardiac workup is indicated. Follow up with GI. Continue general lifestyle modification. Will follow up in the clinic if need be. Thank you for allowing me to partake in his care Coding Level of Care Code New Pt Level 3 (80940) Complex EM visit Add On G2211 Diagnoses Sinus bradycardia R00.1 Chest pain R07.9 CPT Codes EKG - CPT: 87063-[id number], Complete ([id number])
== END 2024-09-18 16:23 | disposition home or self-care (01) ==
LOC: HO.HCS 14:52
PROVIDERS: PCP Internal Medicine; Visit Provider Internal Medicine Cardiovascular Disease
DX: R00.1 Bradycardia, unspecified (principal); R07.9 Chest pain, unspecified
CPT/HCPCS: 93010; 99213; G2211

== ENCOUNTER → 2024-09-18 14:52 | Outpatient (BNVA) | payer OTHER, SELFPAY | PROVIDERS: PCP Internal Medicine; Visit Provider Internal Medicine Cardiovascular Disease | DX: R00.1 Bradycardia, unspecified (principal); R07.9 Chest pain, unspecified | CPT/HCPCS: 93005; 99212 ==

== ENCOUNTER 2025-01-22 15:22 | Outpatient (AMB) | payer OTHER, SELFPAY ==
--- NOTE | 2025-01-22 15:24 | MHC.PC.OV ---
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 Development Director Required: No Accompanied by: Self / Same As Patient Allergies No Known Allergies (No Known Allergies*) Allergy (Verified 01/22/25 15:32) Medication List - Last Reconciled 01/22/25 by Lia Mcqueen MD No Known Home Meds Tobacco use date assessed: 01/22/25 Dental Screening Dental Screen Date: 01/22/25 Did you have a dental visit in the last 12 months?: Yes Did you have a dental problem in the last 6 months where you did not have access to dental care?: No Was dental information given to patient?: Patient has dentist HPI HPI Comments History of Present Illness Details The patient is a 34-year-old male presenting for a physical examination and preventative care. Complaints of left ear pain after swimming. The patient has a history of gastroesophageal reflux disease, which was previously evaluated with a study that confirmed the diagnosis. He was advised to modify his diet, including avoiding late meals, which has helped manage his symptoms. He uses omeprazole as needed for symptom control. The patient also has a history of hyperlipidemia, for which cholesterol levels were checked a year ago. He has made dietary changes, including reducing fried foods, with the help of his , to manage his cholesterol levels. In terms of family history, his father has diabetes and his mother has anxiety. There is no known family history of cancer, although his grandmother is currently being evaluated for a skin lesion. The patient does not smoke and consumes alcohol only on special occasions. [facility] Medical History (Updated 01/22/25 @ 15:44 by Lia Mcqueen MD) Back pain Screening for diabetes mellitus Adult general medical exam Screening for hypothyroidism COVID-19 Surgical History No pertinent past surgical history Family History Father Diabetes Mother Anxiety Maternal Grandmother Diabetes Paternal Grandmother Diabetes Hypertension Brother No problems noted. Sister No problems noted. Son No problems noted. Daughter No problems noted. Social History Housing: Apartment Alcohol intake: current Alcohol intake frequency: holidays/special occasions only Alcohol type: beer, wine and hard liquor Patient Tobacco Use Status: Never used Tobacco e-Cigarette/Vaping Use: Never Used Second Hand Smoke Exposure: No service: No Current occupational status: employed Current occupation: [employer] Current occupational exposures/hazards: No Cognitive needs: No Hearing needs: No Vision needs: Yes (nigh vision glasses) Questionnaire PHQ-9 Over the last 2 weeks, how often have you been bothered by any of the following problems? 1. Little interest or pleasure in doing things: not at all 2. Feeling down, depressed, or hopeless: not at all 3. Trouble falling or staying asleep, or sleeping too much: not at all 4. Feeling tired or having little energy: not at all 5. Poor appetite or overeating: not at all 6. Feeling bad about yourself - or that you are a failure or have let yourself or your family down: not at all 7. Trouble concentrating on things, such as reading the newspaper or watching television: not at all 8. Moving or speaking so slowly that other people could have noticed. Or the opposite - being so fidgety or restless that you have been moving around a lot more than usual: not at all 9. Thoughts that you would be better off or of hurting yourself in some way: not at all Total score: 0 Depression Screening Interpretation: Negative Depression Screening Done: Yes 81096 - PHQ-9 Billing: Yes Source: Developed by Drs. Hua Cross, Isamar Carmichael, Javan Farrell and colleagues, with an educational mirza from [employer]. Thrive Questionnaire Date Thrive assessed: 01/22/25 I am a: Patient What is your living situation today?: I have a steady place to live Within the past 12 months, did the food you bought not last and you didn't have the money to get more?: I choose not to answer this question Within the past 12 months, did you worry whether your food would run out before you got money to buy more?: I choose not to answer this question Do you have trouble paying for medicines?: No Do you have trouble getting transportation to medical appointments?: No Do you have trouble paying your heating and electricity bill?: No Do you have trouble taking care of your child, family member or friend?: No Do you have trouble with day-to-day activities such as bathing, preparing meals, shopping, managing finances, etc.?: No Are you currently unemployed and looking for a job?: No Are you interested in more education?: No Please select the resources that you would like help with: None Currently or been in a relationship where the following occur: No concerns reported THRIVE Score: 0 AUDIT C Alcohol Use Questionnaire (AUDIT-C) 1. How often do you have a drink containing alcohol?: Never Total Score: 0 Score Reviewed/Action Taken: No RONAL-7 AMB Questionnaire RONAL-7 Date RONAL - 7 assessed: 01/22/25 Feeling nervous, anxious, or on edge: 0 = Not at all Not being able to stop or control worryin = Not at all Worrying too much about different things: 0 = Not at all Trouble relaxin = Not at all Being so restless that it is hard to sit still: 0 = Not at all Becoming easily annoyed or irritable: 0 = Not at all Feeling afraid as if something awful might happen: 0 = Not at all Total RONAL-7 score (0-4 normal; 5-9 mild; 10-14 moderate; 15-21 severe): 0 Source: Developed by Drs. Hua Cross, Isamar Carmichael, Javan Farrell and colleagues, with an educational mirza from [employer]. RONAL-7 Assessment Billing RONAL-7 Assessment Tool: RONAL-7 Assessment 11838 Review of Systems Const All systems reviewed & are unremarkable except as noted in HPI and below Card Denies chest pain at rest, Denies chest pain with activity, Denies edema, Denies irregular heart rhythm, Denies claudication, Denies dyspnea, Denies dyspnea on exertion, Denies orthopnea, Denies paroxysmal nocturnal dyspnea and Denies slow heart rate Resp Denies cough, Denies dyspnea and Denies dyspnea on exertion GI Denies abdominal pain, Denies change in bowel habits, Denies excessive flatus, Denies nausea and Denies vomiting Denies urinary hesitancy, Denies urinary incontinence and Denies urinary urgency Physical exam (Primary Care) Vital Signs: Last Vital Signs Temp 97.3 F 01/22/25 15:25 Pulse 66 01/22/25 15:25 Resp 18 01/22/25 15:25 BP 122/82 01/22/25 15:25 Pulse Ox 96 01/22/25 15:25 Oxygen Delivery Method Room Air 01/22/25 15:25 BMI result Body Mass Index 31.2 Tobacco/Smoking Status: Tobacco use Status Tobacco use date assessed 01/22/25 01/22/25 15:29 Patient Tobacco Use Status Never used Tobacco 01/22/25 15:29 e-Cigarette/Vaping Use Never Used 01/22/25 15:29 PHQ-9: PHQ-9 Score PHQ-9: Total score 0 01/22/25 15:29 Depression Screening Interpretation: Negative Thrive Assessment: Date of Thrive Assessment Date Thrive assessed 01/22/25 01/22/25 15:29 Currently or been in a relationship where the following occur: No concerns reported HENMT Head: Yes normal to inspection, Yes normocephalic and Yes atraumatic Ears: external ears normal Eyes General: appearance normal, both eyes and all related structures Eyelids: Yes eyelids normal Conjunctivae: conjunctivae normal Neck Neck: Yes normal visual inspection and Yes supple Resp Effort & Inspection: normal respiratory effort Auscultation: clear to auscultation bilaterally Cardio Jugular venous distension: no JVD Rate: regular rate Rhythm: regular rhythm Heart sounds: S1 normal heart sound present and S2 normal heart sound present GI Inspection: Yes normal to inspection Palpation (GI): Soft to palpation and nontender Auscultation: normal bowel sounds Skin General skin exam: no rashes or lesions noted Neuro General: no focal motor deficits Extrem General: Yes full ROM Psych Appearance: grossly normal Coding Level of Care Code Est Pt Level 3 (17355) Est Pt Prev Care 18-39y(98278) Diagnoses Physical exam Z00.00 Swimmer's ear of left side H60.332 Additional Codes PHQ-9 - 79069 - PHQ-9 Billing: Yes ([id number]) RONAL-7 Assessment Billing - RONAL-7 Assessment Tool: RONAL-7 Assessment 84240 ([id number]) Time Spent (min) 33 Assessment & Plan Assessment & Plan (1) Physical exam: Code(s): Z00.00 - Encounter for general adult medical examination without abnormal findings Category: Medical (2) Swimmer's ear of left side: Code(s): H60.332 - Swimmer's ear, left ear Category: Medical Plan Plan Patient was informed and verbally consented to the use of an ambient scribe for clinic note documentation during this visit. 1. Encounter for general adult medical examination without abnormal findings Z00.00 Tdap vaccination was administered in 2021, with the next dose due in 2031. 2. Swimmer's ear, left ear H60.332 Start ear drops. Orders: Orders Lipid Panel Today E78.5 - Hyperlipidemia, unspecified Comprehensive [place]. Panel Fast Today Z00.00 - Encounter for general adult medical examination without abnormal findings
[2025-01-22 15:25] VITALS: BP 122/82; PULSE 66; RESP 18; TEMP 36.3; O2SAT 96; BMI 31.2
--- OUTSIDE RECORDS SUMMARY | 2025-01-22 17:26 | XMS_ITS | Clinical Summary ---
Author Organization [facility] Address [address] [place] [phone] Phone Care Team Providers Care Malt Roaster Name Role Phone Lia Lennon MD Primary Care Provid er Allergies No known active allergies Medications No known medications Active Problems No known active problems Social History Tobacco Use Types Packs/Day Years Used Date Smoking Tobacco: Never Smokeless Tobacco: Never Alcohol Use Standard Drinks/Week Comments Never 0 (1 standard drink = 0.6 oz pur e alcohol) Education Answer Date Recorded Are you interested in more education? Not on cleo e 09/17/2022 Are you concerned about learning? Not on file 09/17/2022 No 09/17/2022 No 09/17/2022 Digital Access Answer Date Recorded No 10/16/2022 No 10/16/2022 Reliable internet access at home? Not on file 10/16/2022 Device with a working camera? Not on file Sex and Gender Information Value Date Recorded Sex Assigned at Not on file Legal Sex Male 2:44 PM EDT Gender Identity Not on file Sexual Orientation Not on file Last Filed Vital Signs Vital Sign Reading Time Taken Comments Blood Pressure 100/70 12/06/2022 1:38 PM EDT Pulse 75 12/06/2022 1:38 PM EDT Temperature 36.3 C (97.3 F) 12/06/2022 1:38 PM EDT Respiratory Rate 16 12/06/2022 1:38 PM EDT Oxygen Saturation 99% 12/06/2022 1:38 PM EDT Inhaled Oxygen Concentration - - Weight 88.9 kg (196 lb) 12/06/2022 1:38 PM EDT Height 180.3 cm (5' 11 ) 12/06/2022 1:38 PM EDT Body Mass Index 27.34 12/06/2022 1:38 PM EDT Plan of Treatment Health Maintenance Due Date Last Done Comments Adult Td,Tdap Booster 1991 DEPRESSION SCREENING 2003 HEPATITIS C SCREENING 10/03/2009 HIV ONE-TIME SCREENING (18-6 5 YEARS) 10/03/2009 COVID-19 VACCINE (2023-2 5 season) 2024 SMOKING STATUS SCREENING (On ce After 26 Yrs) Completed 12/07/2022 HEPATITIS A VACCINES Aged Out No long er eligible based on patient's age to complete this topic HIB VACCINES Aged Out No longer eligi ble based on patient's age to complete this topic MENINGOCOCCAL VACCINES (ACWY) Aged Out No longer eligible based on patient's age to complete this topic MENINGOCOCCAL VACCINES (B) Aged Out N o longer eligible based on patient's age to complete this topic PNEUMOCOCCAL VACCINES (0-49 years) Aged Out No longer eligible based on patient's age to complete this topic Medical Devices Not on file Insurance WORK[employer] Member Subscriber Plan / Payer (Ef fective 2022-Present) Name:Chau Newton Member ID:[id number] Relation to Subscriber:Employee Name:[email or web address] Address: [address] [place] [address] Payer ID:Not on file Group ID:Not on file Type:Indemnity Address: [address] [place] [id number] Care Teams Malt Roaster Relationship Specialty Start Date End Date Lia Lennon MD [address] [place] [address] PCP - General Internal Medicine 12/07/22 Additional Source Comments The information contained in this document represents components of the legal health record. It is not the complete legal health record.[facility]
== END 2025-01-22 15:41 | disposition home or self-care (01) ==
LOC: HO.HMCH 15:23
PROVIDERS: PCP Internal Medicine; Visit Provider Internal Medicine
DX: Z00.00 Encounter for general adult medical examination without abnormal findings (principal); H60.332 Swimmer's ear, left ear

== ENCOUNTER → 2025-01-22 15:22 | Outpatient (BNVA) | payer OTHER, SELFPAY | PROVIDERS: PCP Internal Medicine; Visit Provider Internal Medicine | DX: Z00.00 Encounter for general adult medical examination without abnormal findings (principal); K21.9 Gastro-esophageal reflux disease without esophagitis; E78.00 Pure hypercholesterolemia, unspecified; H60.332 Swimmer's ear, left ear; E78.5 Hyperlipidemia, unspecified | CPT/HCPCS: 96127; 99212; 99395 ==

== ENCOUNTER 2025-01-24 06:30 | Outpatient (REF) | payer OTHER, SELFPAY ==
--- OUTSIDE RECORDS SUMMARY | 2025-01-24 06:33 | XMS_ITS | Clinical Summary ---
Author Organization [facility] Address [address] [facility] [address] [facility] [address] [place] [phone] Phone Care Team Providers Care Etl Database Developer Name Role Phone Lia Lennon MD Primary [...] Devices Not on file Insurance [employer] Care Teams Etl Database Developer Relationship Specialty Start Date End Date Lia Lennon MD [address] [place] [address] PCP - General Internal Medicine 12/07/22 Additional Source Comments The information contained in this document represents components of the legal health record. It is not the complete legal health record.[facility]
[2025-01-24 08:15] LABS: Alanine Aminotransferase 69 U/L (0-40); Albumin Level 4.6 g/dL (3.5-5.0); Alkaline Phosphatase 107 U/L (39-117); Anion Gap 11 (12-20); Aspartate Amino Transferase 34 U/L (5-37); Blood Urea Nitrogen 14 mg/dL (9-16); Calcium 9.4 mg/dL (8.4-10.2); Carbon Dioxide 27 mmol/L (22-29); Chloride 105 mmol/L (96-108); Cholesterol 266 mg/dL (<200); Estimated Glomerular Filt Rate > 60; HDL Cholesterol 36 mg/dL (>40); Potassium 4.4 mmol/L (3.3-5.1); Sodium 139 mmol/L (135-145); Total Protein 7.2 g/dL (6.5-8.0); Triglycerides 329 mg/dL (<150)
== END 2025-01-24 06:31 | disposition home or self-care (01) ==
LOC: HO.LAB 06:30
PROVIDERS: PCP Internal Medicine; Visit Provider Internal Medicine
DX: Z00.00 Encounter for general adult medical examination without abnormal findings (principal); E78.5 Hyperlipidemia, unspecified
CPT/HCPCS: 36415; 80053; 80061

== ENCOUNTER 2025-04-03 10:17 | Emergency (ER) | payer OTHER, SELFPAY ==
[2025-04-03 10:24] VITALS: BP 136/84; PULSE 90; RESP 18; TEMP 36.7; O2SAT 98; BMI 29.8
--- NOTE | 2025-04-03 10:28 | ED_ITS ---
HPI - General Adult General Chief complaint: Upper Respiratory Symptoms Stated complaint: fall Time Seen by Provider: 04/03/25 10:37 Related Data Previous Rx's ?Medication ?Instructions ?Recorded acetic acid 2 % ear solution 3 drp otic (ear) left Q6H 5 days 01/22/25 #15 mL Allergies Allergy/AdvReac Type Severity Reaction Status Date / Time No Known Allergies (No Known Allergy Verified 04/03/25 10:28 Allergies*) PMFSH Past Medical History Medical History Back pain Screening for diabetes mellitus Adult general medical exam Screening for hypothyroidism COVID-19 Surgical History No pertinent past surgical history Family History Family History Father Diabetes Mother Anxiety Maternal Grandmother Diabetes Paternal Grandmother Diabetes Hypertension Brother No problems noted. Sister No problems noted. Son No problems noted. Daughter No problems noted. Social History Social History Housing: Apartment Alcohol intake: current Alcohol intake frequency: holidays/special occasions only Alcohol type: beer, wine and hard liquor Patient Tobacco Use Status: Never used Tobacco Smoked in Last 30 Days: No e-Cigarette/Vaping Use: Never Used Second Hand Smoke Exposure: No Use of substances other than those prescribed or required for medical reasons: No Advance Directives: No Advance Directives Information Provided: Yes service: No Current occupational status: employed Current occupation: [employer] Current occupational exposures/hazards: No Cognitive needs: No Hearing needs: No Vision needs: Yes (nigh vision glasses) Physical Exam ED Vital Signs: BMI result Body Mass Index 29.8 Course Course Course Narrative: RME: Male presents to the ED for diarrhea, headache, body aches, and chills over the past 2 days. Patient denies any falling chest pain shortness of breath or coughing. Labs lab ordered Medical Decision Making Lab Data 04/03/25 10:42 04/03/25 10:42 Labs: Lab Results 04/03/25 04/03/25 Range/Units 10:42 10:43 WBC 8.1 (4.8-10.8) X10*3/uL RBC 5.24 (4.60-5.80) X10*6/uL Hgb 15.2 (14.0-18.0) g/dl Hct 45.1 (42.0-52.0) % MCV 86.1 (80.0-98.0) fL MCH 29.0 (27.0-33.0) pg MCHC 33.7 (31.0-36.0) g/dl RDW 12.6 (11.0-16.0) % Plt Count 174 D (160-400) X10*3/uL MPV 10.5 (9.4-12.4) fL Immature Gran % (Auto) 0.4 (0.0-0.4) % Neut % (Auto) 79.6 H (45-73) % Lymph % (Auto) 12.4 L (20-40) % [place] % (Auto) 6.6 (2-11) % Eos % (Auto) 0.4 (0-4) % Baso % (Auto) 0.6 (0-2) % Lymph # (Auto) 1.0 L (1.2-4.9) X10*3/uL [place] # (Auto) 0.5 (0.1-1.2) X10*3/uL Eos # (Auto) 0.0 (0.0-0.4) X10*3/uL Baso # (Auto) 0.1 (0.0-0.2) X10*3/uL Abs Immat Gran (auto) 0.03 (0.00-0.03) X10*3/uL Absolute Neuts (auto) 6.4 (2.0-8.3) x10*3/uL Absolute Nucleated RBC 0.000 (0.0-0.012) X10*3/uL Nucleated RBC % (auto) 0.0 (0.0-0.2) /100WBC Sodium 137 (135-145) mmol/L Potassium 3.8 (3.3-5.1) mmol/L Chloride 106 (96-108) mmol/L Carbon Dioxide 26 (22-29) mmol/L Anion Gap 9 L (12-20) BUN 13 (9-16) mg/dL Creatinine 1.12 (0.5-1.4) mg/dL Estim Creat Clear Calc 108.0 Estimated GFR > 60 Random Glucose 102 (60-115) mg/dL Calcium 9.2 (8.4-10.2) mg/dL Total Bilirubin 0.9 (0.0-1.0) mg/dL AST 45 H (5-37) U/L ALT 73 H (0-40) U/L Alkaline Phosphatase 107 (39-117) U/L Total Protein 7.1 (6.5-8.0) g/dL Albumin 4.4 (3.5-5.0) g/dL Lipase 22 (8-78) U/L Urine Color Yellow Urine Appearance Clear Urine pH 6.5 (5.0-9.0) Ur Specific [place] <= 1.005 (1.005-1.025) Urine Protein Negative (Neg-Trace) mg/dL Urine Glucose (UA) Negative (Negative) mg/dL Urine Ketones Negative (Negative) mg/dL Urine Blood Negative (Negative) Urine Nitrite Negative (Negative) Ur Leukocyte Esterase Negative (Negative) Influenza Type A (PCR) NEGATIVE (Negative) Influenza Type B (PCR) NEGATIVE (Negative) RSV RNA Qual (PCR) NEGATIVE (Negative) SARS-CoV-2 RNA (RT-PCR) NEGATIVE (Negative) S. pyogenes GrpA NEETA Negative (Negative) Discharge Plan Discharge Clinical Impression: Acute viral syndrome Patient Disposition: Home, Self-Care Instructions: Viral Syndrome (ED) Additional Instructions: follow-up with your primary care physician return to the emergency room if you worse Prescriptions: No Action acetic acid 2 % solution 3 drp otic (ear) left Q6H 5 Days Qty: 15 0RF Rx Instructions: apply to (cotton) wick; replace wick every 24 hours Stand Alone Forms: Work/School Release Interventions: ED Discharge Assessment Last Done: 04/03/25 12:35 Discharge Date/Time: 04/03/25 12:36 Print Language: Frisian
[2025-04-03 10:44] VITALS: BP 146/89; PULSE 91; RESP 17; TEMP 37.1; O2SAT 98
[2025-04-03 10:47] VITALS: O2SAT 96
[2025-04-03 10:50] LABS: MANUAL DIFF FLAG NO
[2025-04-03 10:52] LABS: Appearance Urine Clear; Glucose Urine UA Negative (Negative); PH 6.5 (5.0-9.0); Specific Gravity - Urine <= 1.005 (1.005-1.025)
[2025-04-03 10:54] LABS: Hematocrit 45.1 % (42.0-52.0); Hemoglobin 15.2 g/dl (14.0-18.0); Imm Gran Abs Auto 0.03 X10*3/uL (0.00-0.03); Imm Gran Pct Auto 0.4 % (0.0-0.4); Lymphocytes Absolute Auto 1.0 X10*3/uL (1.2-4.9); Mean Corpuscular HGB Conc 33.7 g/dl (31.0-36.0); Mean Corpuscular Hemoglobin 29.0 pg (27.0-33.0); Mean Corpuscular Volume 86.1 fL (80.0-98.0); NRBC Abs Auto 0.000 X10*3/uL (0.0-0.012); NRBC Pct Auto 0.0 /100WBC (0.0-0.2); Platelet Count 174 X10*3/uL (160-400); Red Blood Count 5.24 X10*6/uL (4.60-5.80); White Blood Count 8.1 X10*3/uL (4.8-10.8)
[2025-04-03 11:00] LABS: IDNOW Serial# 55D5AD1C; Strep A Nucleic Acid Negative (Negative)
--- NOTE | 2025-04-03 11:08 | ED_ITS ---
HPI - General Adult General Chief complaint: Upper Respiratory Symptoms Stated complaint: fall Time Seen by Provider: 04/03/25 10:37 Source: patient Mode of arrival: ambulatory Limitations: no limitations History of Present Illness HPI narrative: this is a 33 years old the patient presented to the emergency department with chief complaint of generalized weakness malaise since yesterday. Denies any vomiting he had diarrhea x2 Onset (ago): day(s) (1) Radiation: non-radiation Severity: mild Quality: burning Exacerbating factors: none Associated symptoms: denies other symptoms Related Data Previous Rx's ?Medication ?Instructions ?Recorded acetic acid 2 % ear solution 3 drp otic (ear) left Q6H 5 days 01/22/25 #15 mL Allergies Allergy/AdvReac Type Severity Reaction Status Date / Time No Known Allergies (No Known Allergy Verified 04/03/25 10:28 Allergies*) Review of Systems 2 Constitutional: Constitutional: Reports no additional constitutional complaints ENT: Reports system reviewed and no additional complaints, except as documented Respiratory: Respiratory: Reports no additional respiratory complaints [facility] Past Medical History Attestation statement: The following information was validated with the patient. [facility] Narrative: he denies any major medical problems Medical History Back pain Screening for diabetes mellitus Adult general medical exam Screening for hypothyroidism COVID-19 Surgical History No pertinent past surgical history Family History Family History Father Diabetes Mother Anxiety Maternal Grandmother Diabetes Paternal Grandmother Diabetes Hypertension Brother No problems noted. Sister No problems noted. Son No problems noted. Daughter No problems noted. Social History Social History Housing: Apartment Alcohol intake: current Alcohol intake frequency: holidays/special occasions only Alcohol type: beer, wine and hard liquor Patient Tobacco Use Status: Never used Tobacco Smoked in Last 30 Days: No e-Cigarette/Vaping Use: Never Used Second Hand Smoke Exposure: No Use of substances other than those prescribed or required for medical reasons: No Advance Directives: No Advance Directives Information Provided: Yes service: No Current occupational status: employed Current occupation: [employer] Current occupational exposures/hazards: No Cognitive needs: No Hearing needs: No Vision needs: Yes (nigh vision glasses) Physical Exam ED Vital Signs: Vital Signs - 24 hr 04/03/25 10:24 04/03/25 10:44 04/03/25 10:47 Temperature 98.1 F 98.7 F Pulse Rate 90 91 Respiratory Rate 18 17 Blood Pressure 136/84 146/89 H Pulse Oximetry 98 98 96 Oxygen Delivery Method Room Air Room Air Room Air BMI result Body Mass Index 29.8 no acute distress Const General: cooperative Nutritional Appearance: average body habitus Orientation/consciousness: patient oriented x3 Limitations: no limitations HENMT Head: Yes normal to inspection Mouth: Normal oral and palatal mucosa present Neck Neck: Yes normal visual inspection Chest Chest palpation & inspection: normal inspection of the chest Resp Effort & Inspection: normal respiratory effort Auscultation: clear to auscultation bilaterally Cardio Jugular venous distension: no JVD Rate: regular rate Rhythm: regular rhythm GI Inspection: Yes normal to inspection Palpation (GI): Soft to palpation, not firm and nontender Percussion: Yes normal to percussion Auscultation: normal bowel sounds Skin General skin exam: no rashes or lesions noted, elasticity normal and turgor normal Neuro General: patient oriented x3 Extrem General: Yes normal to inspection, Yes full ROM and Yes capillary refill normal Course Reevaluation(s) Reevaluation #1: labs normal remained stable I think we could discharge him home Time: 11:57 Medical Decision Making Medical Decision Making [facility] Narrative: patient is here with generalized weakness malaise he is otherwise old healthy patient, we will get baseline blood work 1159 a.m. patient remain stable afebrile not toxic, labs okay I think he can be discharged home most likely viral syndrome, he is very comfortable with the spinal Differential Diagnosis Differential Diagnoses: The differential diagnosis associated with the presentation includes viral syndrome/ dehydration Admission/Observation Consideration of admission/observation: Escalation of care including admission/observation considered Lab Data [facility] Lab Attestation statement: I reviewed the patient's lab results. 04/03/25 10:42 04/03/25 10:42 Labs: Lab Results 04/03/25 04/03/25 Range/Units 10:42 10:43 WBC 8.1 (4.8-10.8) X10*3/uL RBC 5.24 (4.60-5.80) X10*6/uL Hgb 15.2 (14.0-18.0) g/dl Hct 45.1 (42.0-52.0) % MCV 86.1 (80.0-98.0) fL MCH 29.0 (27.0-33.0) pg MCHC 33.7 (31.0-36.0) g/dl RDW 12.6 (11.0-16.0) % Plt Count 174 D (160-400) X10*3/uL MPV 10.5 (9.4-12.4) fL Immature Gran % (Auto) 0.4 (0.0-0.4) % Neut % (Auto) 79.6 H (45-73) % Lymph % (Auto) 12.4 L (20-40) % [place] % (Auto) 6.6 (2-11) % Eos % (Auto) 0.4 (0-4) % Baso % (Auto) 0.6 (0-2) % Lymph # (Auto) 1.0 L (1.2-4.9) X10*3/uL [place] # (Auto) 0.5 (0.1-1.2) X10*3/uL Eos # (Auto) 0.0 (0.0-0.4) X10*3/uL Baso # (Auto) 0.1 (0.0-0.2) X10*3/uL Abs Immat Gran (auto) 0.03 (0.00-0.03) X10*3/uL Absolute Neuts (auto) 6.4 (2.0-8.3) x10*3/uL Absolute Nucleated RBC 0.000 (0.0-0.012) X10*3/uL Nucleated RBC % (auto) 0.0 (0.0-0.2) /100WBC Sodium 137 (135-145) mmol/L Potassium 3.8 (3.3-5.1) mmol/L Chloride 106 (96-108) mmol/L Carbon Dioxide 26 (22-29) mmol/L Anion Gap 9 L (12-20) BUN 13 (9-16) mg/dL Creatinine 1.12 (0.5-1.4) mg/dL Estim Creat Clear Calc 108.0 Estimated GFR > 60 Random Glucose 102 (60-115) mg/dL Calcium 9.2 (8.4-10.2) mg/dL Total Bilirubin 0.9 (0.0-1.0) mg/dL AST 45 H (5-37) U/L ALT 73 H (0-40) U/L Alkaline Phosphatase 107 (39-117) U/L Total Protein 7.1 (6.5-8.0) g/dL Albumin 4.4 (3.5-5.0) g/dL Lipase 22 (8-78) U/L Urine Color Yellow Urine Appearance Clear Urine pH 6.5 (5.0-9.0) Ur Specific [place] <= 1.005 (1.005-1.025) Urine Protein Negative (Neg-Trace) mg/dL Urine Glucose (UA) Negative (Negative) mg/dL Urine Ketones Negative (Negative) mg/dL Urine Blood Negative (Negative) Urine Nitrite Negative (Negative) Ur Leukocyte Esterase Negative (Negative) Influenza Type A (PCR) NEGATIVE (Negative) Influenza Type B (PCR) NEGATIVE (Negative) RSV RNA Qual (PCR) NEGATIVE (Negative) SARS-CoV-2 RNA (RT-PCR) NEGATIVE (Negative) S. pyogenes GrpA NEETA Negative (Negative) Discharge Plan Discharge Clinical Impression: Acute viral syndrome Patient Disposition: Home, Self-Care Instructions: Viral Syndrome (ED) Additional Instructions: follow-up with your primary care physician return to the emergency room if you worse Prescriptions: No Action acetic acid 2 % solution 3 drp otic (ear) left Q6H 5 Days Qty: 15 0RF Rx Instructions: apply to (cotton) wick; replace wick every 24 hours Stand Alone Forms: Work/School Release Print Language: Nepali
[2025-04-03 11:11] LABS: Alanine Aminotransferase 73 U/L (0-40); Albumin Level 4.4 g/dL (3.5-5.0); Alkaline Phosphatase 107 U/L (39-117); Anion Gap 9 (12-20); Aspartate Amino Transferase 45 U/L (5-37); Blood Urea Nitrogen 13 mg/dL (9-16); Calcium 9.2 mg/dL (8.4-10.2); Carbon Dioxide 26 mmol/L (22-29); Chloride 106 mmol/L (96-108); Creatinine Clr Calc Pharmacy 108.0; Estimated Glomerular Filt Rate > 60; Lipase 22 U/L (8-78); Potassium 3.8 mmol/L (3.3-5.1); Sodium 137 mmol/L (135-145); Total Protein 7.1 g/dL (6.5-8.0)
[2025-04-03 11:29] LABS: Resp Syncy Virus RNA Qual PCR NEGATIVE (Negative); SARS COV2 PCR INHOUSE NEGATIVE (Negative)
[2025-04-03 12:35] VITALS: BP 122/69; PULSE 72; RESP 14; TEMP 36.6; O2SAT 96
--- OUTSIDE RECORDS SUMMARY | 2025-04-03 13:37 | XMS_ITS | Clinical Summary ---
Author Organization [facility] Address [address] [place] [id number] Phone Care Team Providers Care C D Still Operator Name Role Phone Lia Lennon MD Primary [...] HIV ONE-TIME SCREENING (18-6 5 YEARS) 10/03/2009 INFLUENZA VACCINE (#1) 2024 COVID-19 VACCINE (2024-2 6 season) 2025 SMOKING STATUS SCREENING (On ce After 26 Yrs) Completed 12/07/2022 HEPATITIS A VACCINES Aged Out No long er eligible based on patient's age to complete this topic HIB VACCINES Aged Out No longer eligi ble based on patient's age to complete this topic IPV VACCINES Aged Out No longer eligi ble [...] Payer (Ef fective 2022-Present) Name:Chau Newton Member ID:[id number] Relation to Subscriber:Employee Name:ENIO LYNN Address: [address] [place] [address] Payer ID:Not on file Group ID:Not on file Type:Indemnity Address: [address] [place] [id number] Care Teams C D Still Operator Relationship Specialty Start Date End Date Lia Lennon MD [address] [place] [address] PCP - General Internal Medicine 12/07/22 Additional Source Comments The information contained in this document represents components of the legal health record. It is not the complete legal health record.[facility]
== END 2025-04-03 12:36 | disposition home or self-care (01) ==
PROVIDERS: Physician Assistant; Emergency Provider Emergency Medicine; PCP Internal Medicine
DX: B34.9 Viral infection, unspecified (principal); R53.83 Other fatigue; Z03.818 Encounter for observation for suspected exposure to other biological agents ruled out
CPT/HCPCS: 80053; 81003; 83690; 85025; 87637; 87651; 99284